=== PATIENT | male | born 1935 | race Caucasian/White ===

== ENCOUNTER 2016-07-10 06:16 | Observation (INO) ==
--- NOTE | 2016-07-10 06:31 | Emergency Department Note ---
START Narrative - START START: START NOTE: Patient presents with left lower quadrant abdominal pain. He is standing at the bedside and appears in no acute distress on exam. He denies needs at the time of my initial [id number] time. Further care to be continued by the oncoming physician Dr. Lemon
[2016-07-10 08:09] LABS: Basophils % 0.3 %; Eosinophils # 0.1 K/mcL (0.0-0.6); Eosinophils % 0.4 %; Hematocrit 39.3 % (37.5-50.1); Hemoglobin 13.3 g/dL (12.9-16.9); Immature Granulocytes % 0.7 % (0-4); Lymphocytes # 1.4 K/mcL (0.6-4.6); Lymphocytes % 8.6 %; Mean Corpuscular HGB Conc 33.8 g/dL (31.6-35.5); Mean Corpuscular Hemoglobin 28.5 pg (28.0-33.3); Mean Corpuscular Volume 84.2 fL (83.0-100.0); Mean Platelet Volume 10.2 fL (9.4-12.4); Monocytes # 2.3 K/mcL (0.0-1.3); Monocytes % 14.2 %; Platelet Count 171 K/mcL (140-400); Red Blood Count 4.67 M/mcL (4.19-5.50); Red Cell Distribution Width 13.2 % (11.5-14.5); Segmented Neutrophils % 75.8 %
[2016-07-10 08:25] LABS: Alanine Aminotransferase 14 Units/L (0-55); Albumin 3.2 g/dL (3.5-5.0); Alkaline Phosphatase 95 Units/L (38-126); Amylase 147 Units/L (25-125); Aspartate Amino Transferase 15 Units/L (5-34); BUN/Creatinine Ratio 21 (6-26); Bilirubin,Direct 0.7 mg/dL (0.0-0.5); Bilirubin,Indirect 1.1 mg/dL (0.0-1.2); Bilirubin,Total 1.8 mg/dL (0.2-1.2); Blood Urea Nitrogen 16 mg/dL (8-26); Calcium 8.7 mg/dL (8.6-10.8); Carbon Dioxide 25 mEq/L (19-29); Chloride 104 mEq/L (98-109); Globulin 3.1 g/dL (2.4-3.5); Glucose 155 mg/dL (70-99); Lipase 152 Units/L (8-78); Osmolality,Calculated 286 (280-300); Potassium 3.9 mEq/L (3.5-4.5); Sodium 136 mEq/L (136-145); Total Protein 6.3 g/dL (6.0-8.3); eGFR For African Americans > 60 (> 60); eGFR For Non-African Americans > 60 (> 60)
[2016-07-10] MEDS ORDERED: MetroNIDAZOLE 500 MG/100 ML 500 MG/100 ML BAG IVPB ONE (08:35)
--- NOTE | 2016-07-10 08:38 | Emergency Department Note ---
Disposition Clinical Impression: Diverticulitis Qualifiers: Diverticulitis site: large intestine Diverticulitis bleeding: without bleeding Diverticulitis complication: without perforation or abscess Qualified Code(s): K57.32 - Diverticulitis of large intestine without perforation or abscess without bleeding Disposition: Admitted As Inpatient Condition: Fair Referrals: Leonard Villarreal MD [Primary Care Provider] - Forms: Work/School Release, ED Satisfaction Letter Time of Disposition: 08:40 Abdominal Pain HPI - General Chief Complaint: ED Abdominal Pain Stated Complaint: lower left abdominal pain into left leg Time Seen by Provider: 07/10/16 06:28 Source: patient, other Mode of arrival: ambulatory Limitations: no limitations Nursing Notes Reviewed: Yes Vital Signs Reviewed: Yes - History of Present Illness HPI Narrative: 81-year-old who has a history of diverticular disease comes in complaining Pt Subjective Complaint: abdominal pain Onset (ago): hour(s) Consistency: constant Location: LLQ Pain Severity: moderate Pain Scale: 6 Quality: aching Radiation: none Migration to: no migration Improves with: nothing Worsens with: nothing Associated symptoms: Denies: nausea, vomiting, diarrhea - Related Data Allergies Allergy/AdvReac Type Severity Reaction Status Date / Time No Known Allergies Allergy Verified 07/10/16 06:17 Constitutional: Denies: fever, chills, weakness, weight change Eyes: Denies: eye pain, eye discharge, vision change ENT ED: Denies: ear pain, throat pain, dental pain, hearing loss, epistaxis, congestion, dysphagia Cardiovascular: Denies: chest pain, palpitations, dyspnea on exertion, edema, syncope Respiratory: Denies: cough, dyspnea, wheezes, hemoptysis, stridor Gastrointestinal: Denies: abdominal pain, nausea, vomiting, diarrhea, constipation, hematemesis, melena, hematochezia Genitourinary: Denies: urgency, dysuria, frequency, hematuria Musculoskeletal: Denies: back pain, neck pain, arthralgia, myalgia Integumentary: Denies: rash, abrasion, lesions Neurological: Denies: headache, weakness, numbness, paresthesias, confusion, abnormal gait, vertigo Psychiatric: Denies: anxiety, depression, suicidal thoughts, homicidal thoughts , auditory hallucinations, visual hallucinations Endocrine: Denies: fatigue Hematological/Lymphatic: Denies: easy bleeding, easy bruising Allergic/Immunologic: Denies: facial swelling, urticaria Abdominal Pain PMH - Past Medical History Medical history: Reports: arthritis, cancer, coronary artery disease, CVA, diabetes, GERD, hyperlipidemia, hypertension, myocardial infarction Male Surgical History: Reports: other Psychiatric history: Reports: no psych history - Social History Smoking status: Never smoker Alcohol use: Reports: none Drug use: Reports: none Physical Exam - General Limitations: no limitations General appearance: alert - Head Head exam: atraumatic, normocephalic, normal inspection - Eye Eye exam: Present: normal appearance, PERRL, EOMI - ENT ENT exam: normal exam, normal oropharynx, mucous membranes moist - Neck Neck exam: Present: normal inspection, full ROM, trachea midline - Chest Chest inspection: Present: normal inspection, symmetric chest wall rise - Respiratory Respiratory exam: Present: normal lung sounds bilaterally - Cardiovascular Cardiovascular exam: Present: regular rate, normal rhythm, normal heart sounds - Abdominal Exam Abdominal exam: Present: soft, tenderness. Absent: guarding, rebound Abdominal tenderness: Present: LUQ - Extremities Exam Extremities exam: Present: normal inspection, full ROM. Absent: tenderness, pedal edema - Expanded Lower Extremity Exam Gait: not tested/not observed - Back Exam Back exam: Present: normal inspection, full ROM. Absent: tenderness - Neurological Exam Neurological exam: Present: alert, oriented X3 - Skin Skin exam: Present: warm, dry, intact, normal color Course - Consultations Consultation #1: Discussed with , admit. Time: 08:47 Vital Signs Temperature 98.1 F 07/10/16 06:17 Pulse Rate 102 07/10/16 06:17 Respiratory Rate 20 07/10/16 06:17 Blood Pressure 130/71 07/10/16 06:17 O2 Sat by Pulse Oximetry 96 07/10/16 06:17 Temperature 98.1 F 07/10/16 06:17 Pulse Rate 102 07/10/16 06:17 Respiratory Rate 20 07/10/16 06:17 Blood Pressure 130/71 07/10/16 06:17 O2 Sat by Pulse Oximetry 96 07/10/16 06:17 Oxygen Delivery Oxygen Delivery Room Air Abdominal Pain - Lab Data Result diagrams: 07/10/16 08:01 07/10/16 08:01 Lab Results 07/10/16 07/10/16 Range/Units 08:01 08:01 WBC 15.8 H (4.3-11.1) K/mcL RBC 4.67 (4.19-5.50) M/mcL Hgb 13.3 (12.9-16.9) g/dL Hct 39.3 (37.5-50.1) % MCV 84.2 (83.0-100.0) fL MCH 28.5 (28.0-33.3) pg MCHC 33.8 (31.6-35.5) g/dL RDW 13.2 (11.5-14.5) % Plt Count 171 (140-400) K/mcL MPV 10.2 (9.4-12.4) fL Immature Gran % 0.7 (0-4) % Seg Neutrophils % 75.8 % Lymphocytes % 8.6 % Monocytes % 14.2 % Eosinophils % 0.4 % Basophils % 0.3 % Neutrophils # 12.0 H (1.6-8.9) K/mcL Lymphocytes # 1.4 (0.6-4.6) K/mcL Monocytes # 2.3 H (0.0-1.3) K/mcL Eosinophils # 0.1 (0.0-0.6) K/mcL Basophils # 0.0 (0.0-0.2) K/mcL Sodium 136 (136-145) mEq/L Potassium 3.9 (3.5-4.5) mEq/L Chloride 104 (98-109) mEq/L Carbon Dioxide 25 (19-29) mEq/L BUN 16 (8-26) mg/dL Creatinine 0.76 (0.72-1.25) mg/dL Est GFR ( Amer) > 60 (> 60) Est GFR (Non-Af Amer) > 60 (> 60) BUN/Creatinine Ratio 21 (6-26) Glucose 155 H (70-99) mg/dL Calculated Osmolality 286 (280-300) Calcium 8.7 (8.6-10.8) mg/dL Total Bilirubin 1.8 H (0.2-1.2) mg/dL Direct Bilirubin 0.7 H (0.0-0.5) mg/dL Indirect Bilirubin 1.1 (0.0-1.2) mg/dL AST 15 (5-34) Units/L ALT 14 (0-55) Units/L Alkaline Phosphatase 95 (38-126) Units/L Serum Total Protein 6.3 (6.0-8.3) g/dL Albumin 3.2 L (3.5-5.0) g/dL Globulin 3.1 (2.4-3.5) g/dL Albumin/Globulin Ratio 1.0 L (1.1-2.2) Amylase 147 H (25-125) Units/L Lipase 152 H (8-78) Units/L
--- NOTE | 2016-07-10 09:45 | Internal Med History&Physical ---
Date of Encounter: 07/10/16 Time of Encounter: 09:40 Assessment and Plan (1) Diverticulitis Current visit: Yes Status: Acute Patient presented with clinical findings along with tomographic findings consistent with diverticulitis. This is not the first time in which he has this diagnosis. Additionally, the patient has been febrile and has some leukocytosis in the initial WBC count. We will continue with IV fluids, will keep the patient nothing by mouth in the meantime, continue with IV antibiotics and pain control medications. DVT prophylaxis will be provided according to the hospital's protocol. The plan of care was explained in detail to the patient and his , they both expressed understanding. Qualifiers: Diverticulitis site: large intestine Diverticulitis bleeding: without bleeding Diverticulitis complication: without perforation or abscess Qualified Code(s): K57.32 - Diverticulitis of large intestine without perforation or abscess without bleeding Internal Medicine - H&P: HPI Chief complaint: abd pain Admitted From: Emergency Dept Plans for Post Hospital Care: Home History of present illness: Mr. Baker is a 81 year old male with past medical history of hypertension, coronary artery disease, CVA. According to the patient's he had an event of diverticulitis many years ago. The patient presented to our emergency department complaining of left lower quadrant pain which started last evening. Patient states that the pain is pressure-like, associated with fever of 101.4 Fahrenheit, nausea, he vomited once. No blood when he threw up. He denies diarrhea, constipation, blood in the stools, syncope, chest pain, palpitations. Initial workup revealed findings consistent with diverticulitis in the CT scan of the abdomen and pelvis. The patient was admitted for further management and workup. Past Med Surg Social Fam HX - Past Medical History Medical history: arthritis, cancer, coronary artery disease, CVA, diabetes, GERD , hyperlipidemia, hypertension, myocardial infarction Psychiatric history: no psych history - Past Surgical History Surgical History: carotid endarterectomy, orthopedic, other - Social History Smoking Status: Never smoker Smokeless Tobacco Status: No Alcohol use: none Drug use: none Internal Medicine - H&P: Meds Aspirin 325 mg PO DAILY 07/10/16 [History] Atorvastatin [Lipitor] 40 mg PO HS 07/10/16 [History] Bisoprolol/HCTZ 2.5/6.25 [Ziac 2.5/6.25] 1 each PO DAILY 07/10/16 [History] Carvedilol [Carvedilol] 3.125 mg PO BID 07/10/16 [History] Cholecalciferol (Vitamin D3) [Vitamin D] 1,000 unit PO DAILY 07/10/16 [History] Clopidogrel [Plavix] 75 mg PO DAILY 07/10/16 [History] Diclofenac Sodium [Voltaren] 1 appl TP QID PRN 07/10/16 [History] Famotidine [Famotidine] 40 mg PO DAILY 07/10/16 [History] Finasteride [Proscar] 5 mg PO DAILY 07/10/16 [History] Isosorbide MONOnitrate (24 HR) [Imdur] 30 mg PO DAILY 07/10/16 [History] Lansoprazole [Prevacid] 30 mg PO DAILY 07/10/16 [History] Losartan Potassium [Cozaar] 50 mg PO DAILY 07/10/16 [History] Metformin [Glucophage] 500 mg PO BIDWM 07/10/16 [History] Multivitamin [Multi-Day Vitamins] 1 each PO DAILY 07/10/16 [History] Nitroglycerin [Nitrostat] 0.4 mg SL Q5M PRN 07/10/16 [History] Allergies No Known Allergies Allergy (Verified 07/10/16 06:17) All Systems PM: A 10-system review of systems was performed and is negative for pertinent findings except as documented above in the HPI. - Constitutional Constitutional: as per HPI, fever(s), no chills, no night sweats - EENT Eyes: as per HPI, no change in vision, no discharge, no pain, no photophobia Ears: as per HPI, no ear discharge, no ear pain, no tinnitus Nose, mouth and throat: as per HPI, no dysphagia, no nasal discharge, no neck pain, no sore throat - Breasts Breasts: as per HPI - Cardiovascular Cardiovascular ROS IM: as per HPI, no chest pain, no diaphoresis, no dyspnea, no lightheadedness, no palpitations, no syncope - Respiratory Respiratory: as per HPI, no cough, no dyspnea, no wheezing, no excessive phlegm production - Gastrointestinal Gastrointestinal: as per HPI, abdominal pain, nausea, vomiting, no diarrhea, no hematemesis, no hematochezia, no melena - Genitourinary Genitourinary ROS male: as per HPI - Musculoskeletal Musculoskeletal ROS IM: as per HPI, no numbness, no tingling - Integumentary Integumentary IM: as per HPI, no rash, no unusual bruising - Neurological Neurological ROS: as per HPI, no confusion, no convulsions, no focal weakness, no numbness, no tingling, no tremor(s) - Psychiatric Psychiatric: as per HPI - Endocrine Endocrine IM: as per HPI - Hematologic/Lymphatic Hematologic/Lymphatic: as per HPI, no easy bruising - Allergic/Immunologic Allergic/Immunologic: as per HPI - Constitutional Vitals: Temp Pulse Resp BP Pulse Ox 98.1 F 75 16 128/78 95 07/10/16 06:17 07/10/16 09:00 07/10/16 09:00 07/10/16 09:00 07/10/16 09:00 General appearance: Present: cooperative, A&O X 3 - Head Head exam: Present: atraumatic, normocephalic - Eye Eye exam: Present: PERRL, conjuntiva pink, sclera anicteric Pupils: Present: PERRL - Neck Neck exam general surgery: Present: supple, trachea midline. Absent: lymphadenopathy - Respiratory Respiratory exam: Present: CTAB. Absent: accessory muscle use, rales, rhonchi, wheezes - Cardiovascular Cardiovascular exam: Present: RRR, +S1, +S2. Absent: diastolic murmur, gallop, rubs, systolic murmur - GI/Abdominal GI/Abdominal exam: Present: normal bowel sounds, soft, tenderness (LLQ), no peritoneal signs. Absent: distended - Extremities Exam Extremities exam: Present: warm, radial pulses palpable and symetrical. Absent : calf tenderness, cyanotic, pedal edema - Neurological Exam Neurological exam: Present: CN II-XII intact, oriented X3, no focal deficits. Absent: pronater drift, facial droop, speech deficit - Skin Skin exam: Present: dry, intact Internal Med - H&P Results - Labs CBC & Chem 7: 07/10/16 08:01 07/10/16 08:01
[2016-07-10] MEDS ORDERED: *HR* Morphine 2 MG/ML SYRINGE IVP PRN (09:51)
[2016-07-10] MEDS ORDERED: Naloxone 0.4 MG/ML INJ IVP PRN (09:51)
[2016-07-10] MEDS ORDERED: Acetaminophen 325 MG TABLET PO PRN (09:51)
[2016-07-10] MEDS ORDERED: Ondansetron 4 MG/2 ML VIAL IVP PRN (09:51)
[2016-07-10] MEDS ORDERED: D5% in Water 1,000 ML IV PRN (09:55)
[2016-07-10] MEDS ORDERED: Dextrose Gel 15 GM PO PRN ×2 (09:55)
[2016-07-10] MEDS ORDERED: *HR* Dextrose 50 % in Water (Syg) 50 ML SYRINGE IVP PRN (09:55)
[2016-07-10] MEDS: D5% in 0.45% NACL 1,000 ML IVC SCH (11:34)
[2016-07-10] MEDS: Insulin LISPRO 300 UNITS/3 ML VIAL SQ SCH ×2 (12:00→18:30)
[2016-07-10] MEDS: *HR* OxyCODONE Immed Rel 5 MG TABLET PO PRN (17:09)
[2016-07-10] MEDS: MetroNIDAZOLE 500 MG/100 ML 500 MG/100 ML BAG IVPB SCH (17:09)
[2016-07-10] MEDS: *HR* Heparin 5,000 UNIT/ML VIAL SQ SCH (17:10)
[2016-07-10] MEDS: Famotidine 20 MG/2 ML VIAL IVP SCH (17:11)
[2016-07-10 17:42] LABS: Bilirubin,Urine Negative (Negative); Blood,Urine Trace (Negative); Clarity,Urine Clear (Clear); Color,Urine Yellow (Yellow); Glucose,Urine (UA) 100 mg/dL (Normal); Ketones,Urine Negative (Negative); Leukocyte Esterase,Urine Negative (Negative); Nitrite,Urine Negative (Negative); Protein,Urine Negative (Neg-Trace); Specific Gravity,Urine 1.013 (1.010-1.025); Urobilinogen,Urine Normal (Normal)
[2016-07-10 18:04] LABS: Squamous Epithelial Cell,Urine Few per lpf (None-Few); WBC,Urine 0-3 per hpf (0-3)
[2016-07-11] MEDS: Insulin LISPRO 300 UNITS/3 ML VIAL SQ SCH ×4 (00:15→18:04)
[2016-07-11] MEDS: *HR* Heparin 5,000 UNIT/ML VIAL SQ SCH ×4 (00:15→23:33)
[2016-07-11] MEDS: *HR* OxyCODONE Immed Rel 5 MG TABLET PO PRN ×4 (00:16→18:11)
[2016-07-11] MEDS: MetroNIDAZOLE 500 MG/100 ML 500 MG/100 ML BAG IVPB SCH ×4 (00:17→23:33)
[2016-07-11] MEDS: D5% in 0.45% NACL 1,000 ML IVC SCH ×2 (00:18→11:54)
[2016-07-11] MEDS: Famotidine 20 MG/2 ML VIAL IVP SCH (05:53)
[2016-07-11 06:23] LABS: Basophils % 0.3 %; Eosinophils # 0.1 K/mcL (0.0-0.6); Eosinophils % 1.5 %; Hematocrit 40.2 % (37.5-50.1); Hemoglobin 13.2 g/dL (12.9-16.9); Immature Granulocytes % 0.7 % (0-4); Lymphocytes # 1.3 K/mcL (0.6-4.6); Mean Corpuscular HGB Conc 32.8 g/dL (31.6-35.5); Mean Corpuscular Hemoglobin 27.8 pg (28.0-33.3); Mean Corpuscular Volume 84.6 fL (83.0-100.0); Mean Platelet Volume 11.2 fL (9.4-12.4); Monocytes # 1.3 K/mcL (0.0-1.3); Monocytes % 13.1 %; Neutrophils # 6.7 K/mcL (1.6-8.9); Platelet Count 162 K/mcL (140-400); Red Blood Count 4.75 M/mcL (4.19-5.50); Red Cell Distribution Width 13.2 % (11.5-14.5); Segmented Neutrophils % 70.4 %
[2016-07-11 06:30] LABS: Alanine Aminotransferase 11 Units/L (0-55); Albumin 2.9 g/dL (3.5-5.0); Albumin/Globulin Ratio 0.9 (1.1-2.2); Alkaline Phosphatase 77 Units/L (38-126); Aspartate Amino Transferase 14 Units/L (5-34); BUN/Creatinine Ratio 13 (6-26); Bilirubin,Total 1.7 mg/dL (0.2-1.2); Blood Urea Nitrogen 10 mg/dL (8-26); Calcium 8.5 mg/dL (8.6-10.8); Carbon Dioxide 22 mEq/L (19-29); Chloride 105 mEq/L (98-109); Globulin 3.2 g/dL (2.4-3.5); Glucose 162 mg/dL (70-99); Magnesium 1.8 mg/dL (1.6-2.6); Osmolality,Calculated 283 (280-300); Potassium 3.9 mEq/L (3.5-4.5); Sodium 135 mEq/L (136-145); Total Protein 6.1 g/dL (6.0-8.3); eGFR For African Americans > 60 (> 60); eGFR For Non-African Americans > 60 (> 60)
--- NOTE | 2016-07-11 13:03 | Internal Med Progress Note ---
Date of Encounter: 07/11/16 Time of Encounter: 09:00 - Assessment and plan (1) Diverticulitis Current Visit: Yes Status: Acute Assessment and plan: We will continue Cipro and Flagyl, keep nothing by mouth, IV fluid. White count get Down after treatment. Qualifiers: Diverticulitis site: large intestine Diverticulitis bleeding: without bleeding Diverticulitis complication: without perforation or abscess Qualified Code(s): K57.32 - Diverticulitis of large intestine without perforation or abscess without bleeding (2) Hypertension Current Visit: Yes Status: Acute Assessment and plan: BP is stable, will continue home medication Qualifiers: Hypertension type: essential hypertension Qualified Code(s): I10 - Essential (primary) hypertension (3) Diabetes Current Visit: Yes Status: Acute Assessment and plan: Patient will covered by sliding scale. Qualifiers: Diabetes mellitus type: type 2 Diabetes mellitus complication status: without complication Diabetes mellitus penitentiary insulin use: without penitentiary use Qualified Code(s): E11.9 - Type 2 diabetes mellitus without complications (4) CAD (coronary artery disease) Current Visit: Yes Status: Acute Assessment and plan: Stable, will continue home medication Qualifiers: Coronary Disease-Associated Artery/Lesion type: [place] artery [place] vs. transplanted heart: [place] heart Associated angina: without angina Qualified Code(s): I25.10 - Atherosclerotic heart disease of [place] coronary artery without angina pectoris (5) DVT prophylaxis Current Visit: Yes Status: Acute Assessment and plan: Heparin subcutaneously - Time Spent With Patient 25 - 35 minutes - Subjective Interval history: Patient is a 81-year-old male admitted for acute diverticulitis. His past medical history is significant for CAD, CVA, diabetes, hyperlipidemia, hypertension. Patient was seen and examined today. He said that his nausea and vomiting has improved. Mild abdominal pain. No diarrhea. No fever, vital signs stable. We will continue Cipro and Flagyl, keep nothing by mouth, give IV fluid. - Constitutional Vitals: Temp Pulse Resp BP Pulse Ox 98.4 F 64 16 154/59 93 L 07/11/16 11:33 07/11/16 11:33 07/11/16 11:33 07/11/16 11:33 07/11/16 11:33 General appearance: Present: cooperative, A&O X 3 - Head Head exam: Present: atraumatic, normocephalic - Eye Eye exam: Present: PERRL, conjuntiva pink, sclera anicteric Pupils: Present: PERRL - Neck Neck exam general surgery: Present: supple, trachea midline. Absent: lymphadenopathy - Respiratory Respiratory exam: Present: CTAB. Absent: accessory muscle use, rales, rhonchi, wheezes - Cardiovascular Cardiovascular exam: Present: RRR, +S1, +S2. Absent: diastolic murmur, gallop, rubs, systolic murmur - GI/Abdominal GI/Abdominal exam: Present: normal bowel sounds, soft, tenderness (Mild to tenderness on the lower part of abdomen upon deep palpation.), no peritoneal signs. Absent: distended - Extremities Exam Extremities exam: Present: warm, radial pulses palpable and symetrical. Absent : calf tenderness, cyanotic, pedal edema - Neurological Exam Neurological exam: Present: CN II-XII intact, oriented X3, no focal deficits. Absent: pronater drift, facial droop, speech deficit - Skin Skin exam: Present: dry, intact Internal Medicine: Result - Labs CBC & Chem 7: 07/11/16 04:27 07/11/16 04:27 Labs: Short CBC 07/11/16 Range/Units 04:27 WBC 9.6 (4.3-11.1) K/mcL Hgb 13.2 (12.9-16.9) g/dL Hct 40.2 (37.5-50.1) % Plt Count 162 (140-400) K/mcL Neutrophils # 6.7 (1.6-8.9) K/mcL BMP 07/11/16 04:27 Sodium 135 L Potassium 3.9 Chloride 105 Carbon Dioxide 22 BUN 10 Creatinine 0.76 Glucose 162 H Calcium 8.5 L Liver Function 07/11/16 Range/Units 04:27 Total Bilirubin 1.7 H (0.2-1.2) mg/dL AST 14 (5-34) Units/L ALT 11 (0-55) Units/L Alkaline Phosphatase 77 (38-126) Units/L Albumin 2.9 L (3.5-5.0) g/dL Urine 07/10/16 Range/Units 17:17 Urine Color Yellow (Yellow) Urine Clarity Clear (Clear) Urine pH 7.0 (5.0-8.0) pH Units Ur Specific [place] 1.013 (1.010-1.025) Urine Protein Negative (Neg-Trace) mg/dL Urine Glucose (UA) 100 H (Normal) mg/dL - VTE Documentation of Mechanical Device: Intermittent pneumatic compression device Consult Discharge Plan - Plan Referrals: Leonard Villarreal MD [Primary Care Provider] -
[2016-07-11] MEDS ORDERED: (Diclofenac Sodium [Voltaren] 1 APPL) TP PRN (13:05)
[2016-07-11] MEDS ORDERED: Nitroglycerin 0.4 MG TAB.SUBL SL PRN (13:05)
[2016-07-12] MEDS: Insulin LISPRO 300 UNITS/3 ML VIAL SQ SCH ×4 (01:08→17:48)
[2016-07-12 04:49] LABS: Hematocrit 40.3 % (37.5-50.1); Hemoglobin 13.5 g/dL (12.9-16.9); Immature Granulocytes % 0.6 % (0-4); Lymphocytes % 13.7 %; Mean Corpuscular HGB Conc 33.5 g/dL (31.6-35.5); Mean Corpuscular Hemoglobin 28.2 pg (28.0-33.3); Mean Corpuscular Volume 84.1 fL (83.0-100.0); Mean Platelet Volume 10.8 fL (9.4-12.4); Platelet Count 172 K/mcL (140-400); Red Blood Count 4.79 M/mcL (4.19-5.50); Red Cell Distribution Width 13.1 % (11.5-14.5); Segmented Neutrophils % 69.2 %
[2016-07-12 04:50] LABS: Basophils % 0.4 %; Eosinophils # 0.2 K/mcL (0.0-0.6); Eosinophils % 2.5 %; Lymphocytes # 1.1 K/mcL (0.6-4.6); Monocytes # 1.1 K/mcL (0.0-1.3); Monocytes % 13.6 %; Neutrophils # 5.7 K/mcL (1.6-8.9)
[2016-07-12 04:56] LABS: BUN/Creatinine Ratio 12 (6-26); Blood Urea Nitrogen 9 mg/dL (8-26); Calcium 8.9 mg/dL (8.6-10.8); Carbon Dioxide 25 mEq/L (19-29); Chloride 104 mEq/L (98-109); Glucose 133 mg/dL (70-99); Osmolality,Calculated 285 (280-300); Potassium 3.8 mEq/L (3.5-4.5); Sodium 137 mEq/L (136-145); eGFR For African Americans > 60 (> 60); eGFR For Non-African Americans > 60 (> 60)
[2016-07-12] MEDS: *HR* Heparin 5,000 UNIT/ML VIAL SQ SCH ×2 (07:01→16:20)
[2016-07-12] MEDS: MetroNIDAZOLE 500 MG/100 ML 500 MG/100 ML BAG IVPB SCH ×2 (07:01→16:20)
[2016-07-12] MEDS: Finasteride 5 MG TABLET PO SCH (08:12)
[2016-07-12] MEDS: Isosorbide MONOnitrate (24 HR) 30 MG TAB.ER.24H PO SCH (08:12)
[2016-07-12] MEDS: Multivit/Ca/Min/Fe/FA 1 TAB TABLET PO SCH (08:12)
[2016-07-12] MEDS: Cholecalciferol (D-3) 1,000 UNIT TABLET PO SCH (08:12)
[2016-07-12] MEDS: Aspirin 325 MG TABLET PO SCH (08:12)
[2016-07-12] MEDS: Famotidine 20 MG TABLET PO SCH (08:12)
[2016-07-12] MEDS ORDERED: Bisoprolol/HCTZ 2.5/6.25 TABLET PO SCH (09:00)
--- NOTE | 2016-07-12 14:25 | Internal Med Progress Note ---
Date of Encounter: 07/12/16 Time of Encounter: 08:45 - Assessment and plan (1) Diverticulitis Current Visit: Yes Status: Acute Assessment and plan: Acute. Without perforation or abscess. Improving clinically. Started on clears. If he Tolerates clears, advance diet slowly. Qualifiers: Diverticulitis site: large intestine Diverticulitis bleeding: without bleeding Diverticulitis complication: without perforation or abscess Qualified Code(s): K57.32 - Diverticulitis of large intestine without perforation or abscess without bleeding (2) CAD (coronary artery disease) Current Visit: Yes Status: Acute Assessment and plan: Chronic. No acute chest pain. Continue aspirin, statin, beta alma Qualifiers: Coronary Disease-Associated Artery/Lesion type: [place] artery [place] vs. transplanted heart: [place] heart Associated angina: without angina Qualified Code(s): I25.10 - Atherosclerotic heart disease of [place] coronary artery without angina pectoris (3) DVT prophylaxis Current Visit: Yes Status: Acute Assessment and plan: On subcutaneous heparin (4) Diabetes Current Visit: Yes Status: Acute Assessment and plan: Monitor blood sugars. We will increase insulin regimen as patient's diet is advanced. Qualifiers: Diabetes mellitus type: type 2 Diabetes mellitus complication status: without complication Diabetes mellitus snf insulin use: without rodent exterminator use Qualified Code(s): E11.9 - Type 2 diabetes mellitus without complications (5) Hypertension Current Visit: Yes Status: Acute Assessment and plan: Well-controlled Qualifiers: Hypertension type: essential hypertension Qualified Code(s): I10 - Essential (primary) hypertension - Subjective Interval history: Abdominal pain is improving. No fever or chills reported overnight. Started on clears this morning. Tolerating well. He did have an episode of emesis this morning. Received Zofran. - Constitutional Vitals: Temp Pulse Resp BP Pulse Ox 97.5 F L 80 16 131/68 95 07/12/16 10:10 07/12/16 10:10 07/12/16 10:10 07/12/16 10:10 07/12/16 10:10 General appearance: Present: cooperative, mild distress, A&O X 3, pleasant, answers questions appropriately - Neck Neck exam general surgery: Present: supple, trachea midline. Absent: lymphadenopathy - Respiratory Respiratory exam: Present: CTAB. Absent: accessory muscle use, rales, rhonchi, wheezes - Cardiovascular Cardiovascular exam: Present: RRR, +S1, +S2. Absent: diastolic murmur, gallop, rubs, systolic murmur - GI/Abdominal GI/Abdominal exam: Present: normal bowel sounds, soft, tenderness (Umbilical and left lower quadrant regions), no peritoneal signs. Absent: distended - Extremities Exam Extremities exam: Present: warm, radial pulses palpable and symetrical. Absent : calf tenderness, cyanotic, pedal edema - Neurological Exam Neurological exam: Present: CN II-XII intact, oriented X3, no focal deficits, strengths equal and symetr throughout. Absent: facial droop, speech deficit Internal Medicine: Result - Labs CBC & Chem 7: 07/12/16 04:33 07/12/16 04:33 Labs: Short CBC 07/12/16 Range/Units 04:33 WBC 8.2 (4.3-11.1) K/mcL Hgb 13.5 (12.9-16.9) g/dL Hct 40.3 (37.5-50.1) % Plt Count 172 (140-400) K/mcL Neutrophils # 5.7 (1.6-8.9) K/mcL BMP 07/12/16 04:33 Sodium 137 Potassium 3.8 Chloride 104 Carbon Dioxide 25 BUN 9 Creatinine 0.75 Glucose 133 H Calcium 8.9 - VTE Documentation of Mechanical Device: Intermittent pneumatic compression device Consult Discharge Plan - Plan Referrals: Leonard Villarreal MD [Primary Care Provider] - - Attending Attestation This document has been at least partially created by [employer] voice recognition technology by Dr. Simons. Errors in grammar, wording or other phrases may exist. If errors are found after the documentation is signed, they will be addressed individually in the addendum section of this document when appropriate. Medical Decision Making - MDM Narrative Medical decision making narrative: Moderate risk for complications - Medical Records Medical records reviewed: Yes I reviewed the patient's medical records. - Lab Data Lab results reviewed: Yes I reviewed the patient's lab results. Result diagrams: 07/12/16 04:33 07/12/16 04:33 Lab Results 07/10/16 07/10/16 07/11/16 Range/Units 17:17 17:25 00:12 WBC (4.3-11.1) K/mcL RBC (4.19-5.50) M/mcL Hgb (12.9-16.9) g/dL Hct (37.5-50.1) % MCV (83.0-100.0) fL MCH (28.0-33.3) pg MCHC (31.6-35.5) g/dL RDW (11.5-14.5) % Plt Count (140-400) K/mcL MPV (9.4-12.4) fL Immature Gran % (0-4) % Seg Neutrophils % % Lymphocytes % % Monocytes % % Eosinophils % % Basophils % % Neutrophils # (1.6-8.9) K/mcL Lymphocytes # (0.6-4.6) K/mcL Monocytes # (0.0-1.3) K/mcL Eosinophils # (0.0-0.6) K/mcL Basophils # (0.0-0.2) K/mcL Sodium (136-145) mEq/L Potassium (3.5-4.5) mEq/L Chloride (98-109) mEq/L Carbon Dioxide (19-29) mEq/L BUN (8-26) mg/dL Creatinine (0.72-1.25) mg/dL Est GFR ( Amer) (> 60) Est GFR (Non-Af Amer) (> 60) BUN/Creatinine Ratio (6-26) Glucose (70-99) mg/dL POC Glucose 123 H 159 H (58-89) Calculated Osmolality (280-300) Calcium (8.6-10.8) mg/dL Magnesium (1.6-2.6) mg/dL Total Bilirubin (0.2-1.2) mg/dL AST (5-34) Units/L ALT (0-55) Units/L Alkaline Phosphatase (38-126) Units/L Serum Total Protein (6.0-8.3) g/dL Albumin (3.5-5.0) g/dL Globulin (2.4-3.5) g/dL Albumin/Globulin Ratio (1.1-2.2) Urine Color Yellow (Yellow) Urine Clarity Clear (Clear) Urine pH 7.0 (5.0-8.0) pH Units Ur Specific [place] 1.013 (1.010-1.025) Urine Protein Negative (Neg-Trace) mg/dL Urine Glucose (UA) 100 H (Normal) mg/dL Urine Ketones Negative (Negative) mg/dL Urine Blood Trace H (Negative) Urine Nitrite Negative (Negative) Urine Bilirubin Negative (Negative) Urine Urobilinogen Normal (Normal) mg/dL Ur Leukocyte Esterase Negative (Negative) Urine Microscopic WBC 0-3 (0-3) per hpf Ur Squamous Epith Cells Few (None-Few) per lpf Ur Culture Indicated? NO (NO) 07/11/16 07/11/16 07/11/16 Range/Units 04:27 04:27 05:09 WBC 9.6 (4.3-11.1) K/mcL RBC 4.75 (4.19-5.50) M/mcL Hgb 13.2 (12.9-16.9) g/dL Hct 40.2 (37.5-50.1) % MCV 84.6 (83.0-100.0) fL MCH 27.8 L (28.0-33.3) pg MCHC 32.8 (31.6-35.5) g/dL RDW 13.2 (11.5-14.5) % Plt Count 162 (140-400) K/mcL MPV 11.2 (9.4-12.4) fL Immature Gran % 0.7 (0-4) % Seg Neutrophils % 70.4 % Lymphocytes % 14.0 % Monocytes % 13.1 % Eosinophils % 1.5 % Basophils % 0.3 % Neutrophils # 6.7 (1.6-8.9) K/mcL Lymphocytes # 1.3 (0.6-4.6) K/mcL Monocytes # 1.3 (0.0-1.3) K/mcL Eosinophils # 0.1 (0.0-0.6) K/mcL Basophils # 0.0 (0.0-0.2) K/mcL Sodium 135 L (136-145) mEq/L Potassium 3.9 (3.5-4.5) mEq/L Chloride 105 (98-109) mEq/L Carbon Dioxide 22 (19-29) mEq/L BUN 10 (8-26) mg/dL Creatinine 0.76 (0.72-1.25) mg/dL Est GFR ( Amer) > 60 (> 60) Est GFR (Non-Af Amer) > 60 (> 60) BUN/Creatinine Ratio 13 (6-26) Glucose 162 H (70-99) mg/dL POC Glucose 148 H (58-89) Calculated Osmolality 283 (280-300) Calcium 8.5 L (8.6-10.8) mg/dL Magnesium 1.8 (1.6-2.6) mg/dL Total Bilirubin 1.7 H (0.2-1.2) mg/dL AST 14 (5-34) Units/L ALT 11 (0-55) Units/L Alkaline Phosphatase 77 (38-126) Units/L Serum Total Protein 6.1 (6.0-8.3) g/dL Albumin 2.9 L (3.5-5.0) g/dL Globulin 3.2 (2.4-3.5) g/dL Albumin/Globulin Ratio 0.9 L (1.1-2.2) Urine Color (Yellow) Urine Clarity (Clear) Urine pH (5.0-8.0) pH Units Ur Specific [place] (1.010-1.025) Urine Protein (Neg-Trace) mg/dL Urine Glucose (UA) (Normal) mg/dL Urine Ketones (Negative) mg/dL Urine Blood (Negative) Urine Nitrite (Negative) Urine Bilirubin (Negative) Urine Urobilinogen (Normal) mg/dL Ur Leukocyte Esterase (Negative) Urine Microscopic WBC (0-3) per hpf Ur Squamous Epith Cells (None-Few) per lpf Ur Culture Indicated? (NO) 07/11/16 07/11/16 07/12/16 Range/Units 11:30 16:41 00:31 WBC (4.3-11.1) K/mcL RBC (4.19-5.50) M/mcL Hgb (12.9-16.9) g/dL Hct (37.5-50.1) % MCV (83.0-100.0) fL MCH (28.0-33.3) pg MCHC (31.6-35.5) g/dL RDW (11.5-14.5) % Plt Count (140-400) K/mcL MPV (9.4-12.4) fL Immature Gran % (0-4) % Seg Neutrophils % % Lymphocytes % % Monocytes % % Eosinophils % % Basophils % % Neutrophils # (1.6-8.9) K/mcL Lymphocytes # (0.6-4.6) K/mcL Monocytes # (0.0-1.3) K/mcL Eosinophils # (0.0-0.6) K/mcL Basophils # (0.0-0.2) K/mcL Sodium (136-145) mEq/L Potassium (3.5-4.5) mEq/L Chloride (98-109) mEq/L Carbon Dioxide (19-29) mEq/L BUN (8-26) mg/dL Creatinine (0.72-1.25) mg/dL Est GFR ( Amer) (> 60) Est GFR (Non-Af Amer) (> 60) BUN/Creatinine Ratio (6-26) Glucose (70-99) mg/dL POC Glucose 140 H 140 H 134 H (58-89) Calculated Osmolality (280-300) Calcium (8.6-10.8) mg/dL Magnesium (1.6-2.6) mg/dL Total Bilirubin (0.2-1.2) mg/dL AST (5-34) Units/L ALT (0-55) Units/L Alkaline Phosphatase (38-126) Units/L Serum Total Protein (6.0-8.3) g/dL Albumin (3.5-5.0) g/dL Globulin (2.4-3.5) g/dL Albumin/Globulin Ratio (1.1-2.2) Urine Color (Yellow) Urine Clarity (Clear) Urine pH (5.0-8.0) pH Units Ur Specific [place] (1.010-1.025) Urine Protein (Neg-Trace) mg/dL Urine Glucose (UA) (Normal) mg/dL Urine Ketones (Negative) mg/dL Urine Blood (Negative) Urine Nitrite (Negative) Urine Bilirubin (Negative) Urine Urobilinogen (Normal) mg/dL Ur Leukocyte Esterase (Negative) Urine Microscopic WBC (0-3) per hpf Ur Squamous Epith Cells (None-Few) per lpf Ur Culture Indicated? (NO) 07/12/16 07/12/16 07/12/16 Range/Units 04:33 04:33 04:33 WBC 8.2 (4.3-11.1) K/mcL RBC 4.79 (4.19-5.50) M/mcL Hgb 13.5 (12.9-16.9) g/dL Hct 40.3 (37.5-50.1) % MCV 84.1 (83.0-100.0) fL MCH 28.2 (28.0-33.3) pg MCHC 33.5 (31.6-35.5) g/dL RDW 13.1 (11.5-14.5) % Plt Count 172 (140-400) K/mcL MPV 10.8 (9.4-12.4) fL Immature Gran % 0.6 (0-4) % Seg Neutrophils % 69.2 % Lymphocytes % 13.7 % Monocytes % 13.6 % Eosinophils % 2.5 % Basophils % 0.4 % Neutrophils # 5.7 (1.6-8.9) K/mcL Lymphocytes # 1.1 (0.6-4.6) K/mcL Monocytes # 1.1 (0.0-1.3) K/mcL Eosinophils # 0.2 (0.0-0.6) K/mcL Basophils # 0.0 (0.0-0.2) K/mcL Sodium 137 (136-145) mEq/L Potassium 3.8 (3.5-4.5) mEq/L Chloride 104 (98-109) mEq/L Carbon Dioxide 25 (19-29) mEq/L BUN 9 (8-26) mg/dL Creatinine 0.75 (0.72-1.25) mg/dL Est GFR ( Amer) > 60 (> 60) Est GFR (Non-Af Amer) > 60 (> 60) BUN/Creatinine Ratio 12 (6-26) Glucose 133 H (70-99) mg/dL POC Glucose (58-89) Calculated Osmolality 285 (280-300) Calcium 8.9 (8.6-10.8) mg/dL Magnesium 1.6 (1.6-2.6) mg/dL Total Bilirubin (0.2-1.2) mg/dL AST (5-34) Units/L ALT (0-55) Units/L Alkaline Phosphatase (38-126) Units/L Serum Total Protein (6.0-8.3) g/dL Albumin (3.5-5.0) g/dL Globulin (2.4-3.5) g/dL Albumin/Globulin Ratio (1.1-2.2) Urine Color (Yellow) Urine Clarity (Clear) Urine pH (5.0-8.0) pH Units Ur Specific [place] (1.010-1.025) Urine Protein (Neg-Trace) mg/dL Urine Glucose (UA) (Normal) mg/dL Urine Ketones (Negative) mg/dL Urine Blood (Negative) Urine Nitrite (Negative) Urine Bilirubin (Negative) Urine Urobilinogen (Normal) mg/dL Ur Leukocyte Esterase (Negative) Urine Microscopic WBC (0-3) per hpf Ur Squamous Epith Cells (None-Few) per lpf Ur Culture Indicated? (NO) 07/12/16 07/12/16 Range/Units 05:43 11:34 WBC (4.3-11.1) K/mcL RBC (4.19-5.50) M/mcL Hgb (12.9-16.9) g/dL Hct (37.5-50.1) % MCV (83.0-100.0) fL MCH (28.0-33.3) pg MCHC (31.6-35.5) g/dL RDW (11.5-14.5) % Plt Count (140-400) K/mcL MPV (9.4-12.4) fL Immature Gran % (0-4) % Seg Neutrophils % % Lymphocytes % % Monocytes % % Eosinophils % % Basophils % % Neutrophils # (1.6-8.9) K/mcL Lymphocytes # (0.6-4.6) K/mcL Monocytes # (0.0-1.3) K/mcL Eosinophils # (0.0-0.6) K/mcL Basophils # (0.0-0.2) K/mcL Sodium (136-145) mEq/L Potassium (3.5-4.5) mEq/L Chloride (98-109) mEq/L Carbon Dioxide (19-29) mEq/L BUN (8-26) mg/dL Creatinine (0.72-1.25) mg/dL Est GFR ( Amer) (> 60) Est GFR (Non-Af Amer) (> 60) BUN/Creatinine Ratio (6-26) Glucose (70-99) mg/dL POC Glucose 123 H 168 H (58-89) Calculated Osmolality (280-300) Calcium (8.6-10.8) mg/dL Magnesium (1.6-2.6) mg/dL Total Bilirubin (0.2-1.2) mg/dL AST (5-34) Units/L ALT (0-55) Units/L Alkaline Phosphatase (38-126) Units/L Serum Total Protein (6.0-8.3) g/dL Albumin (3.5-5.0) g/dL Globulin (2.4-3.5) g/dL Albumin/Globulin Ratio (1.1-2.2) Urine Color (Yellow) Urine Clarity (Clear) Urine pH (5.0-8.0) pH Units Ur Specific [place] (1.010-1.025) Urine Protein (Neg-Trace) mg/dL Urine Glucose (UA) (Normal) mg/dL Urine Ketones (Negative) mg/dL Urine Blood (Negative) Urine Nitrite (Negative) Urine Bilirubin (Negative) Urine Urobilinogen (Normal) mg/dL Ur Leukocyte Esterase (Negative) Urine Microscopic WBC (0-3) per hpf Ur Squamous Epith Cells (None-Few) per lpf Ur Culture Indicated? (NO)
--- NOTE | 2016-07-12 14:35 | Electrocardiograph Report ---
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
--- NOTE | 2016-07-12 16:00 | Cardiology Consult Note ---
<Willie Maurer - Last Filed: 07/12/16 16:06> Date of Encounter: 07/12/16 Time of Encounter: 13:47 Assessment and Plan (1) Bradycardia Current Visit: Yes Status: Acute Asymptomatic bradycardia. HR countd as low as 39 bpm. HR increased when he ambulated in the hallway to the 70's. Agree with discontinuing carvedilol. Recently evaluated by cardiology and beta- alma was discontinued at that time. F/u holter monitor showed no more bradycardia. TTE 05/2016 showed normal EF. Cardiology will sign off. call with questions. F/u in 1-2 weeks. Discussion w patient/family: The assessment and plan as outlined above was discussed with the patient and/or family members who expressed understanding and agreement. All questions were answered. Thank you for involving us in the care of your patient. Please call with any questions. History of Present Illness Consult date: 07/12/16 Requesting physician: Romelia Simons Consult reason: asymptomatic bradycardia Chief complaint: abdominal pain, nausea, fever History of present illness: Mr. Baker is a 81 year old male with a history of hypertension, HLD, CVA, carotid artery disease s/p CEA, and asymptomatic bradycardia. He denies history of CAD. He is currently being treated for diverticulitis. Today he was seen to have a HR at 39 BPM taken on a vital machine. Cardiology was consulted for bradycardia. He denies symptoms. Denies dizziness or lightheadedness. Denies syncope. Denies fatigue or SOB. Denies chest pain. Continues to have mild reproducible abd pain. He did receive carvedilol this morning. He was seen by cardiology 05/31/16 for asymptomatic bradycardia noticed by his counting his pulse to be in the 30's. His bisoprolol was discontinued at that time. F/u 48 hr holter monitor did not show any recurrent bradycardia. He is not sure who started carvedilol since that time. Past Med Surg Social Fam HX - Past Medical History Medical history: arthritis, cancer, CVA, diabetes, GERD, hyperlipidemia, hypertension Psychiatric history: no psych history - Past Surgical History Surgical History: carotid endarterectomy, orthopedic, other - Social History Smoking Status: Former smoker Smokeless Tobacco Status: No Alcohol use: none Drug use: none - Family History Father Living Status: Age at : 88 Cause of : Heart attack Hx Family Cardiac Disorders: Yes Hx Family Respiratory Disorders: No Hx Family Cancer: Yes (Breast Cancer and Skin Cancer) Hx Family GI Disorders: Yes (Gerd) Hx Family Genitourinary Disorders: No Hx Family Endocrine Disorder: Yes (Diabetes) Hx Family Musculoskeletal Disorders: No Hx Family Neuromuscular Disorders: No Hx Family Neurologic Disorders: No Hx Family HEENT Disorders: No Hx Family Autoimmune Disorders: No Hx Family Reproductive Disorders: No Hx Family Psychosocial Disorders: No Hx Family Medical Disorders: No Medications and Allergies Aspirin 325 mg PO DAILY 07/10/16 [History] Atorvastatin [Lipitor] 40 mg PO HS 07/10/16 [History] Cholecalciferol (Vitamin D3) [Vitamin D] 1,000 unit PO DAILY 07/10/16 [History] Clopidogrel [Plavix] 75 mg PO DAILY 07/10/16 [History] Diclofenac Sodium [Voltaren] 1 appl TP QID PRN 07/10/16 [History] Famotidine [Famotidine] 40 mg PO DAILY 07/10/16 [History] Finasteride [Proscar] 5 mg PO DAILY 07/10/16 [History] Isosorbide MONOnitrate (24 HR) [Imdur] 30 mg PO DAILY 07/10/16 [History] Lansoprazole [Prevacid] 30 mg PO DAILY 07/10/16 [History] Losartan Potassium [Cozaar] 50 mg PO DAILY 07/10/16 [History] Metformin [Glucophage] 500 mg PO BIDWM 07/10/16 [History] Multivitamin [Multi-Day Vitamins] 1 each PO DAILY 07/10/16 [History] Nitroglycerin [Nitrostat] 0.4 mg SL Q5M PRN 07/10/16 [History] Allergies No Known Allergies Allergy (Verified 07/10/16 06:17) All Systems Review: A 10-system review of systems was performed and is negative for pertinent findings except as documented above in the HPI. Physical Examination Vital Signs, Last 4 Hours Temp Pulse Resp BP Pulse Ox 07/12/16 14:55 98.3 F 39 14 116/74 95 General: Conversant, No Apparent Distress HEENT: Atraumatic, Normocephaly, Mucus Membranes Moist Neck: No JVD, Normal carotid pulses Cardiac: Reg Rate and Rhythm, Normal S1 and S2, No Murmur Lungs: Normal Breath Sounds, No Wheeze, Rales, Rhonchi Neuro: Alert and responsive, No focal deficits noted Abdomen: Soft, Other (Mild tenderness to palpation) Skin: No rashes noted on visualized skin Musculoskeletal: No Chest Wall Tenderness Extremities: No Clubbing, No Cyanosis, No Edema, Normal Pulses Results 07/12/16 04:33 07/12/16 04:33 Lab Results 07/12/16 07/12/16 07/12/16 04:33 04:33 04:33 WBC 8.2 Hgb 13.5 Hct 40.3 Plt Count 172 Sodium 137 Potassium 3.8 Chloride 104 Carbon Dioxide 25 BUN 9 Creatinine 0.75 Glucose 133 H Calcium 8.9 Magnesium 1.6 - Imaging and Cardiology Echo: report reviewed (EF 60%, mild diastolic dysfunction, aortic valve sclerosis with no stennosis.) - EKG Interpretation EKG results cardiology: personally reviewed (SR with PVC, HR 72) Consult Discharge Plan - Plan Referrals: Leonard Villarreal MD [Primary Care Provider] - <Mady Jain - Last Filed: 07/12/16 16:42> Date of Encounter: 07/12/16 Assessment and Plan Discussion w patient/family: The assessment and plan as outlined above was discussed with the patient and/or family members who expressed understanding and agreement. All questions were answered. Thank you for involving us in the care of your patient. Please call with any questions. History of Present Illness History of present illness: Mr. Baker is a 81 year old male All Systems Review: A 10-system review of systems was performed and is negative for pertinent findings except as documented above in the HPI. Physical Examination Vital Signs, Last 4 Hours Temp Pulse Resp BP Pulse Ox 07/12/16 14:55 98.3 F 39 14 116/74 95 Results 07/12/16 04:33 07/12/16 04:33 Lab Results 07/12/16 07/12/16 07/12/16 04:33 04:33 04:33 WBC 8.2 Hgb 13.5 Hct 40.3 Plt Count 172 Sodium 137 Potassium 3.8 Chloride 104 Carbon Dioxide 25 BUN 9 Creatinine 0.75 Glucose 133 H Calcium 8.9 Magnesium 1.6 - Attending Attestation I examined this patient and my medical decision-making was reviewed with the PIPE ORGAN INSTALLER/PA/Advanced Practice Nurse/Resident Physician. I agree with the documented findings, disposition and treatment plan. Mr. Baker presents for diverticulitis and incidentally discovered to have bradycardic heart rates. He was initially seen in the cardiology office May 31 for bradycardia and his bisoprolol was stopped. He had a follow up holter demonstrating average heart rate 80's with minimum 57 off of beta alma. Then in June the called in concerned for elevated heart rates and coreg was started and he was referred to Dr. Erick Corrales but has not had the appointment yet. His heart rates per have been as low as 30. While in the hospital heart rate per nursing is 39. We recommend starting telemetry and stopping coreg. May consider more extended recording upon discharge.
[2016-07-12] MEDS ORDERED: Insulin LISPRO 300 UNITS/3 ML VIAL SQ SCH ×2 (17:00→21:00)
[2016-07-13] MEDS: MetroNIDAZOLE 500 MG/100 ML 500 MG/100 ML BAG IVPB SCH ×2 (01:00→07:48)
[2016-07-13] MEDS: *HR* Heparin 5,000 UNIT/ML VIAL SQ SCH ×2 (01:00→07:47)
[2016-07-13 06:54] VITALS: BP 113/73
[2016-07-13] MEDS: Insulin LISPRO 300 UNITS/3 ML VIAL SQ SCH (07:47)
--- NOTE | 2016-07-13 10:03 | Discharge Summary ---
Date of Encounter: 07/13/16 Time of Encounter: 10:03 - Discharge Diagnosis (1) Diverticulitis Priority: Primary Status: Acute Qualifiers: Diverticulitis site: large intestine Diverticulitis bleeding: without bleeding Diverticulitis complication: without perforation or abscess Qualified Code(s): K57.32 - Diverticulitis of large intestine without perforation or abscess without bleeding (2) CAD (coronary artery disease) Priority: Secondary Status: Acute Qualifiers: Coronary Disease-Associated Artery/Lesion type: [place] artery [place] vs. transplanted heart: [place] heart Associated angina: without angina Qualified Code(s): I25.10 - Atherosclerotic heart disease of [place] coronary artery without angina pectoris (3) DVT prophylaxis Priority: Secondary Status: Acute (4) Diabetes Priority: Secondary Status: Acute Qualifiers: Diabetes mellitus type: type 2 Diabetes mellitus complication status: without complication Diabetes mellitus manager long term care insulin use: without manager long term care use Qualified Code(s): E11.9 - Type 2 diabetes mellitus without complications (5) Hypertension Priority: Secondary Status: Chronic Qualifiers: Hypertension type: essential hypertension Qualified Code(s): I10 - Essential (primary) hypertension (6) Bradycardia Priority: Secondary Status: Acute - Discharge Medications Prescriptions: Ciprofloxacin [Cipro] 500 mg PO BID #20 tablet Docusate [Colace] 100 mg PO BID PRN #30 capsule PRN Reason: Constipation MetroNIDAZOLE [Metronidazole] 500 mg PO TID #30 tablet Home Medications: Aspirin 325 mg PO DAILY 07/10/16 [History] Atorvastatin [Lipitor] 40 mg PO HS 07/10/16 [History] Cholecalciferol (Vitamin D3) [Vitamin D3] 1,000 unit PO DAILY 07/10/16 [History] Clopidogrel [Plavix] 75 mg PO DAILY 07/10/16 [History] Diclofenac Sodium [Voltaren] 1 appl TP QID PRN 07/10/16 [History] Famotidine 40 mg PO DAILY 07/10/16 [History] Finasteride [Proscar] 5 mg PO DAILY 07/10/16 [History] Isosorbide MONOnitrate (24 HR) [Imdur] 30 mg PO DAILY 07/10/16 [History] Lansoprazole [Prevacid] 30 mg PO DAILY 07/10/16 [History] Losartan Potassium [Cozaar] 50 mg PO DAILY 07/10/16 [History] Metformin [Glucophage] 500 mg PO BIDWM 07/10/16 [History] Multivitamin [Multi-Day Vitamins] 1 each PO DAILY 07/10/16 [History] Nitroglycerin [Nitrostat] 0.4 mg SL Q5M PRN 07/10/16 [History] Ciprofloxacin [Cipro] 500 mg PO BID #20 tablet 07/13/16 [Rx] Docusate [Colace] 100 mg PO BID PRN #30 capsule 07/13/16 [Rx] MetroNIDAZOLE [Metronidazole] 500 mg PO TID #30 tablet 07/13/16 [Rx] Allergies/Adverse Reactions: Allergies No Known Allergies Allergy (Verified 07/10/16 06:17) Procedures/tests Complete & Pending: Procedures Performed prior 72 hours Category Date Time Status ECG 12 lead ECG [ECG] Routine Y 07/12/16 01:46 Completed EKG [ECG 12 lead ECG] [ECG] Stat Y 07/12/16 15:03 Completed Date of admission: 07/10/16 09:31 Primary care physician: Leonard Villarreal MD Consults: 07/12/16 15:05 Consult to Cardiology [CONS] Routine Comment: Consulting Provider: Cardiology [facility] Reason for Consult: Asymptomatic bradycardia with HR in 30s Time Notified: 15:05 Call Completed: Yes Discharging clinician: Romelia Simons Anticipated date of discharge: 07/13/16 - Patient Status Disposition: Home, Self-Care Condition: Good Functional capacity at discharge: independent ambulation Overall status at discharge: patient is progressing back to baseline - Discharge Instructions Instructions: Diverticulitis (DC), Chronic Hypertension (DC) Follow Up With: Leonard Villarreal MD [Primary Care Provider] - 07/18/16 1:15 pm Vicenta Coronado CNP [Partnered Physician] - 07/27/16 8:30 am - Diet and Activity Activity: resume usual activities as tolerated Diet: diabetic diet, low fat, low cholesterol, low salt diet, other ( diverticulitis diet) Hospital course: Mr. Baker is a 81 year old male was observed in hospital after presenting with acute abdominal pain. He was diagnosed with acute diverticulitis. He was treated with intravenous antibiotics. He improved with this treatment plan and his abdominal pain has mostly resolved. He is tolerating full liquid diet and feels much better. He is stable to be discharged home at this time. During his stay here, he was noted to have sinus bradycardic episodes with heart rate going down to the 30s. Patient was on carvedilol and this has now been stopped. Patient underwent a Holter monitor last month and was found to have bradycardic episodes and carvedilol have been held then. A repeat Holter monitor evaluation did not report any bradycardia. However patient was restarted on carvedilol in the interim. At this time, per cardiology recommendations, carvedilol has been stopped. Patient had no further episodes of that low heart rate. He has had episodes of SVT on his telemetry. He will follow-up with his take off worker after discharge for further management. - Time Spent with Patient Total time spent providing and/or coordinating discharge services: Greater than 30 minutes (32 min) - Constitutional Vitals: Temp Pulse Resp BP Pulse Ox 97.3 F L 88 10 113/73 94 L 07/13/16 06:51 07/13/16 06:51 07/13/16 06:51 07/13/16 06:51 07/13/16 06:51 General appearance: Present: cooperative, mild distress, A&O X 3, pleasant, answers questions appropriately - Respiratory Respiratory exam: Present: CTAB. Absent: accessory muscle use, rales, rhonchi, wheezes - Cardiovascular Cardiovascular exam: Present: RRR, +S1, +S2. Absent: diastolic murmur, gallop, rubs, systolic murmur - GI/Abdominal GI/Abdominal exam: Present: normal bowel sounds, soft, no peritoneal signs. Absent: distended, tenderness - Neurological Exam Neurological exam: Present: CN II-XII intact, oriented X3, no focal deficits. Absent: facial droop, speech deficit - VTE Documentation of Mechanical Device: Intermittent pneumatic compression device - Attending Attestation This document has been at least partially created by [employer] recognition technology by Dr. Simons. Errors in grammar, wording or other phrases may exist. If errors are found after the documentation is signed, they will be addressed individually in the addendum section of this document when appropriate.
[2016-07-13] MEDS: Cholecalciferol (D-3) 1,000 UNIT TABLET PO SCH (10:27)
[2016-07-13] MEDS: Finasteride 5 MG TABLET PO SCH (10:27)
[2016-07-13] MEDS: Isosorbide MONOnitrate (24 HR) 30 MG TAB.ER.24H PO SCH (10:27)
[2016-07-13] MEDS: Aspirin 325 MG TABLET PO SCH (10:27)
[2016-07-13] MEDS: Multivit/Ca/Min/Fe/FA 1 TAB TABLET PO SCH (10:27)
[2016-07-13] MEDS: Famotidine 20 MG TABLET PO SCH (10:30)
--- NOTE | 2016-07-13 11:09 | Event Note ---
Date of Encounter: 07/13/16 Time of Encounter: 11:05 - Cardiology Event Note Mr. Baker is discharge and I did not personally see him. I did review his telemetry. No significant bradycardia seen. Lowest HR was 56 BPM SR with bigemeny. There was frequent isolated PVC, no runs. No Pauses. No VT. One 11 beat run of SVT seen. Avg Hr was 73 bpm. F/u will be made with Dr. Erick Corrales in 1-2 weeks.
--- NOTE | 2016-07-13 11:21 | Electrocardiograph Report ---
[facility] Test Date: 2016-07-12 Pat Name: Killian Baker Department: 115 Room: 3A21 Gender: M Lapel Padder Blindstitch: VAZQUEZ : 1935 Requested By: Romelia Simons Order Number: [id number] Reading MD: Rico Hernandez MD Measurements Intervals [place] Rate: 68 P: 25 VT: 127 QRS: 23 QRSD: 94 T: 46 QT: 394 QTc: 411 Interpretive Statements SINUS RHYTHM Electronically Signed On 07-13-16 11:19:54 EST by Rico Hernandez MD
== END 2016-07-13 10:59 | disposition home or self-care (01) ==
LOC: EMEROO 06:16 → 3ANU 06:16 → SUATTDRO 09:31 → 3ANU 10:57
PROVIDERS: ADMIT Internal Medicine; ATTEND Internal Medicine

== ENCOUNTER 2017-02-17 04:51 | Observation (INO) ==
[2017-02-17] MEDS ORDERED: Aspirin 81 MG TAB.CHEW PO ONE (05:21)
--- NOTE | 2017-02-17 05:24 | Emergency Department Note ---
Disposition Clinical Impression: Chest pain Qualifiers: Chest pain type: unspecified Qualified Code(s): R07.9 - Chest pain, unspecified Disposition: Still a Patient Condition: Fair Forms: ED Satisfaction Letter Time of Disposition: 05:52 Chest Pain HPI - General Chief Complaint: ED Chest Pain Stated Complaint: CP Time Seen by Provider: 02/17/17 05:21 Source: patient, family Limitations: no limitations Vital Signs Reviewed: Yes Nursing Notes Reviewed: Yes - History of Present Illness HPI Narrative: Alert and oriented and nontoxic-appearing 81-year-old male presents for evaluation of substernal chest pain that awoke him from his sleep at approximately 0100 hours this morning. He states that he first awoke with a sensation of nausea and then describes a tightness in his chest. He states this tightness radiated into his left upper arm. He denies any diaphoresis, vomiting, or recent upper respiratory symptoms. He did self administer one nitroglycerin tablet at home prior to coming to the emergency department. By the time of his arrival, his chest pain is completely resolved. Pt complaint: chest pain Onset (ago): hour(s) (Approximately 0100 hours this morning) Onset: awoke with symptoms Pain Location: substernal Severity: now resolved Severity scale (1-10): 0 Quality: tightness Pain Radiation: LUE Improves with: nitroglycerin Worsens with: nothing Associated symptoms: Reports: nausea - Related Data Home Medications Medication Instructions Recorded Confirmed Aspirin 325 mg PO DAILY 07/10/16 07/10/16 Atorvastatin [Lipitor] 40 mg PO HS 07/10/16 07/10/16 Cholecalciferol (Vitamin D3) 1,000 unit PO DAILY 07/10/16 07/10/16 [Vitamin D3] Clopidogrel [Plavix] 75 mg PO DAILY 07/10/16 07/10/16 Diclofenac Sodium [Voltaren] 1 appl TP QID PRN 07/10/16 07/10/16 Famotidine 40 mg PO DAILY 07/10/16 07/10/16 Finasteride [Proscar] 5 mg PO DAILY 07/10/16 07/10/16 Isosorbide MONOnitrate (24 HR) 30 mg PO DAILY 07/10/16 07/10/16 [Imdur] Lansoprazole [Prevacid] 30 mg PO DAILY 07/10/16 07/10/16 Losartan Potassium [Cozaar] 50 mg PO DAILY 07/10/16 07/10/16 Multivitamin [Multi-Day Vitamins] 1 each PO DAILY 07/10/16 07/10/16 Nitroglycerin [Nitrostat] 0.4 mg SL Q5M PRN 07/10/16 07/10/16 metFORMIN [Glucophage] 500 mg PO BIDWM 07/10/16 07/10/16 Previous Rx's Medication Instructions Recorded Ciprofloxacin [Cipro] 500 mg PO BID #20 tablet 07/13/16 Docusate [Colace] 100 mg PO BID PRN #30 capsule 07/13/16 metroNIDAZOLE [Metronidazole] 500 mg PO TID #30 tablet 07/13/16 Allergies Allergy/AdvReac Type Severity Reaction Status Date / Time No Known Allergies Allergy Verified 07/10/16 06:17 All systems ED: reviewed and negative except as stated. Constitutional: Denies: fever, chills, weakness, weight change Eyes: Denies: eye pain, eye discharge, vision change ENT ED: Denies: ear pain, throat pain, dental pain, hearing loss, epistaxis, congestion, dysphagia Cardiovascular: Reports: as per HPI, chest pain. Denies: palpitations, dyspnea on exertion, edema, syncope Respiratory: Denies: cough, dyspnea, wheezes, hemoptysis, stridor Gastrointestinal: Reports: as per HPI, nausea. Denies: abdominal pain, vomiting , diarrhea, constipation, hematemesis, melena, hematochezia Genitourinary: Denies: urgency, dysuria, frequency, hematuria Musculoskeletal: Denies: back pain, neck pain, arthralgia, myalgia Integumentary: Denies: rash, abrasion, lesions Neurological: Denies: headache, weakness, numbness, paresthesias, confusion, abnormal gait, vertigo Psychiatric: Denies: anxiety, depression, suicidal thoughts, homicidal thoughts , auditory hallucinations, visual hallucinations Endocrine: Denies: fatigue Hematological/Lymphatic: Denies: easy bleeding, easy bruising Allergic/Immunologic: Denies: facial swelling, urticaria Chest Pain PMH - Past Medical History Medical history: Reports: arthritis, cancer, CVA, diabetes, GERD, hyperlipidemia , hypertension Surgical history: Reports: carotid endarterectomy, orthopedic, other Psychiatric history: Reports: no psych history - Social History Smoking Status: Former smoker Alcohol use: Reports: none Drug use: Reports: none Physical Exam - General Limitations: no limitations General appearance: alert, in no apparent distress - Head Head exam: atraumatic, normocephalic, normal inspection - Eye Eye exam: Present: normal appearance, PERRL, EOMI. Absent: nystagmus - ENT ENT exam: mucous membranes moist - Neck Neck exam: Present: normal inspection, full ROM, trachea midline - Chest Chest inspection: Present: normal inspection, symmetric chest wall rise - Respiratory Respiratory exam: Present: normal lung sounds bilaterally. Absent: respiratory distress, wheezes, stridor, accessory muscle use, prolonged expiratory phase - Cardiovascular Cardiovascular exam: Present: regular rate, normal rhythm, normal heart sounds - Abdominal Exam Abdominal exam: Present: soft, Non-Tender, normal bowel sounds. Absent: tenderness, distention, guarding, rebound, rigidity - Extremities Exam Extremities exam: Present: normal inspection, full ROM. Absent: tenderness, pedal edema - Neurological Exam Neurological exam: Present: alert, oriented X3 - Psychiatric Psychiatric exam: Present: normal affect, normal mood - Skin Skin exam: Present: warm, dry, intact, normal color Course Vital Signs Temperature 97.4 F L 02/17/17 04:55 Pulse Rate 75 02/17/17 04:55 Respiratory Rate 16 02/17/17 04:55 Blood Pressure 142/84 02/17/17 04:55 O2 Sat by Pulse Oximetry 96 02/17/17 04:55 Temperature 97.4 F L 02/17/17 04:55 Pulse Rate 73 02/17/17 05:31 Respiratory Rate 18 02/17/17 05:31 Blood Pressure 127/70 02/17/17 05:31 O2 Sat by Pulse Oximetry 96 02/17/17 05:31 Oxygen Delivery Oxygen Delivery Room Air Chest Pain - Medical Records Medical records reviewed: Yes I reviewed the patient's medical records. - Lab Data Lab results reviewed: Yes I reviewed the patient's lab results. - Radiology Data Radiology results reviewed: Yes I reviewed the patient's radiology results. - EKG Data EKG attestation: Yes I reviewed and interpreted this EKG. EKG results narrative: EKG reviewed by Dr. Dutta as well. EKG shows a sinus rhythm with a nonspecific T-wave abnormality at a rate of 79 bpm. CA interval 147, QRS duration 87, QT/QTc interval 354/388. No ectopy noted. No STEMI. S.B.Neela. - S.Alanna.Frank Situation: Demographics, MOA Background: Presenting Complaint, Relevant PMH, Meds, & Allergies Assessment: Vital Signs, Course and respsone to treatment, Exam Concerns, Patient/Family Expectation, Pertinant Lab Results, Outstanding Labs Recommendation: Barrier(s) to disposition, Recommendation based on pending studies, treatments, or consults S.Alanna.Frank Report Given to: SARAH Wheeler Repor Time: 06:00 Attestation Statement - Attestation Attestation: For this encounter, I have reviewed the [employer] or PA documentation, treatment plan, and medical decision making; and I have had face to face time with this patient. Patient presenting with chest pain and elevated heart score. We will proceed with admission for ACS rule out. Aspirin and nitroglycerin be administered.
[2017-02-17 05:54] LABS: Basophils # 0.1 K/mcL (0.0-0.2); Basophils % 0.9 %; Eosinophils % 11.8 %; Hematocrit 40.1 % (37.5-50.1); Hemoglobin 13.3 g/dL (12.9-16.9); Immature Granulocytes % 0.5 % (0-4); Lymphocytes # 1.4 K/mcL (0.6-4.6); Mean Corpuscular HGB Conc 33.2 g/dL (31.6-35.5); Mean Corpuscular Hemoglobin 27.8 pg (28.0-33.3); Mean Corpuscular Volume 83.9 fL (83.0-100.0); Monocytes # 0.9 K/mcL (0.0-1.3); Platelet Count 197 K/mcL (140-400); Red Blood Count 4.78 M/mcL (4.19-5.50); Red Cell Distribution Width 13.4 % (11.5-14.5); Segmented Neutrophils % 58.8 %
[2017-02-17 06:03] LABS: INR 1.2; Prothrombin Time 12.7 Seconds (9.4-12.1)
[2017-02-17 06:06] LABS: Activated Partial Thrombo Time 29.3 Seconds (26.0-36.0)
[2017-02-17 06:12] LABS: BUN/Creatinine Ratio 18 (6-26); Blood Urea Nitrogen 15 mg/dL (8-26); Calcium 9.1 mg/dL (8.6-10.8); Carbon Dioxide 26 mEq/L (19-29); Chloride 105 mEq/L (98-109); Glucose 108 mg/dL (70-99); Osmolality,Calculated 287 (280-300); Potassium 4.2 mEq/L (3.5-4.5); Sodium 138 mEq/L (136-145); eGFR For African Americans > 60 (> 60); eGFR For Non-African Americans > 60 (> 60)
[2017-02-17] MEDS ORDERED: Naloxone 0.4 MG/ML INJ IVP PRN ×2 (06:34→08:59)
--- NOTE | 2017-02-17 08:13 | Emergency Department Note ---
Disposition Clinical Impression: NSTEMI (non-ST elevated myocardial infarction) Chest pain Qualifiers: Chest pain type: unspecified Qualified Code(s): R07.9 - Chest pain, unspecified Disposition: Admitted As Inpatient Condition: Fair Referrals: Leonard Villarreal MD [Primary Care Provider] - Forms: ED Satisfaction Letter Chest Pain HPI - General Chief Complaint: ED Chest Pain Stated Complaint: CP Time Seen by Provider: 02/17/17 05:21 Source: patient, family Limitations: no limitations - History of Present Illness Pain Location: substernal Severity scale (1-10): 0 Quality: tightness Improves with: nitroglycerin Worsens with: nothing Associated symptoms: Reports: nausea - Related Data Home Medications Medication Instructions Recorded Confirmed Aspirin 325 mg PO DAILY 07/10/16 07/10/16 Atorvastatin [Lipitor] 40 mg PO HS 07/10/16 07/10/16 Cholecalciferol (Vitamin D3) 1,000 unit PO DAILY 07/10/16 07/10/16 [Vitamin D3] Clopidogrel [Plavix] 75 mg PO DAILY 07/10/16 07/10/16 Diclofenac Sodium [Voltaren] 1 appl TP QID PRN 07/10/16 07/10/16 Famotidine 40 mg PO DAILY 07/10/16 07/10/16 Finasteride [Proscar] 5 mg PO DAILY 07/10/16 07/10/16 Isosorbide MONOnitrate (24 HR) 30 mg PO DAILY 07/10/16 07/10/16 [Imdur] Lansoprazole [Prevacid] 30 mg PO DAILY 07/10/16 07/10/16 Losartan Potassium [Cozaar] 50 mg PO DAILY 07/10/16 07/10/16 Multivitamin [Multi-Day Vitamins] 1 each PO DAILY 07/10/16 07/10/16 Nitroglycerin [Nitrostat] 0.4 mg SL Q5M PRN 07/10/16 07/10/16 metFORMIN [Glucophage] 500 mg PO BIDWM 07/10/16 07/10/16 Previous Rx's Medication Instructions Recorded Ciprofloxacin [Cipro] 500 mg PO BID #20 tablet 07/13/16 Docusate [Colace] 100 mg PO BID PRN #30 capsule 07/13/16 metroNIDAZOLE [Metronidazole] 500 mg PO TID #30 tablet 07/13/16 Allergies Allergy/AdvReac Type Severity Reaction Status Date / Time No Known Allergies Allergy Verified 07/10/16 06:17 Constitutional: Denies: fever, chills, weakness, weight change Eyes: Denies: eye pain, eye discharge, vision change ENT ED: Denies: ear pain, throat pain, dental pain, hearing loss, epistaxis, congestion, dysphagia Cardiovascular: Reports: as per HPI, chest pain. Denies: palpitations, dyspnea on exertion, edema, syncope Respiratory: Denies: cough, dyspnea, wheezes, hemoptysis, stridor Gastrointestinal: Reports: as per HPI, nausea. Denies: abdominal pain, vomiting , diarrhea, constipation, hematemesis, melena, hematochezia Genitourinary: Denies: urgency, dysuria, frequency, hematuria Musculoskeletal: Denies: back pain, neck pain, arthralgia, myalgia Integumentary: Denies: rash, abrasion, lesions Neurological: Denies: headache, weakness, numbness, paresthesias, confusion, abnormal gait, vertigo Psychiatric: Denies: anxiety, depression, suicidal thoughts, homicidal thoughts , auditory hallucinations, visual hallucinations Endocrine: Denies: fatigue Hematological/Lymphatic: Denies: easy bleeding, easy bruising Allergic/Immunologic: Denies: facial swelling, urticaria Chest Pain PMH - Past Medical History Medical history: Reports: arthritis, cancer, CVA, diabetes, GERD, hyperlipidemia , hypertension Surgical history: Reports: carotid endarterectomy, orthopedic, other Psychiatric history: Reports: no psych history - Social History Smoking Status: Former smoker Alcohol use: Reports: none Drug use: Reports: none Physical Exam - General Limitations: no limitations General appearance: alert, in no apparent distress Course Course Narrative: Assumed care of this patient from [facility] at [facility] change. Patient had chest pain that woke him up. His gave him one nitroglycerine which relieved the pain. His pain has not returned. He is resting comfortably and has no complaints. Troponin is pending. Troponin is elevated 0.14. Patient will be admitted. Hospitalist contacted. Patient accepted by the Hospitalist. He requested that Cardiology be called for mahendra on stress test as we are currently holding patients. Dr. Jain was paged. Vital Signs Temperature 97.4 F L 02/17/17 04:55 Pulse Rate 75 02/17/17 04:55 Respiratory Rate 16 02/17/17 04:55 Blood Pressure 142/84 02/17/17 04:55 O2 Sat by Pulse Oximetry 96 02/17/17 04:55 Temperature 97.4 F L 02/17/17 04:55 Pulse Rate 69 02/17/17 06:09 Respiratory Rate 16 02/17/17 07:52 Blood Pressure 154/90 02/17/17 07:52 O2 Sat by Pulse Oximetry 95 02/17/17 06:09 Oxygen Delivery Oxygen Delivery Room Air Chest Pain - Lab Data Result diagrams: 02/17/17 05:45 02/17/17 05:45 Lab Results 02/17/17 02/17/17 02/17/17 Range/Units 05:45 05:45 05:45 WBC 8.5 (4.3-11.1) K/mcL RBC 4.78 (4.19-5.50) M/mcL Hgb 13.3 (12.9-16.9) g/dL Hct 40.1 (37.5-50.1) % MCV 83.9 (83.0-100.0) fL MCH 27.8 L (28.0-33.3) pg MCHC 33.2 (31.6-35.5) g/dL RDW 13.4 (11.5-14.5) % Plt Count 197 (140-400) K/mcL MPV 10.0 (9.4-12.4) fL Immature Gran % 0.5 (0-4) % Seg Neutrophils % 58.8 % Lymphocytes % 17.0 % Monocytes % 11.0 % Eosinophils % 11.8 % Basophils % 0.9 % Neutrophils # 5.0 (1.6-8.9) K/mcL Lymphocytes # 1.4 (0.6-4.6) K/mcL Monocytes # 0.9 (0.0-1.3) K/mcL Eosinophils # 1.0 H (0.0-0.6) K/mcL Basophils # 0.1 (0.0-0.2) K/mcL PT (9.4-12.1) Seconds INR APTT (26.0-36.0) Seconds Sodium 138 (136-145) mEq/L Potassium 4.2 (3.5-4.5) mEq/L Chloride 105 (98-109) mEq/L Carbon Dioxide 26 (19-29) mEq/L BUN 15 (8-26) mg/dL Creatinine 0.82 (0.72-1.25) mg/dL Est GFR ( Amer) > 60 (> 60) Est GFR (Non-Af Amer) > 60 (> 60) BUN/Creatinine Ratio 18 (6-26) Glucose 108 H (70-99) mg/dL Calculated Osmolality 287 (280-300) Calcium 9.1 (8.6-10.8) mg/dL Troponin I 0.14 H* (0-0.03) ng/mL 02/17/17 Range/Units 05:45 WBC (4.3-11.1) K/mcL RBC (4.19-5.50) M/mcL Hgb (12.9-16.9) g/dL Hct (37.5-50.1) % MCV (83.0-100.0) fL MCH (28.0-33.3) pg MCHC (31.6-35.5) g/dL RDW (11.5-14.5) % Plt Count (140-400) K/mcL MPV (9.4-12.4) fL Immature Gran % (0-4) % Seg Neutrophils % % Lymphocytes % % Monocytes % % Eosinophils % % Basophils % % Neutrophils # (1.6-8.9) K/mcL Lymphocytes # (0.6-4.6) K/mcL Monocytes # (0.0-1.3) K/mcL Eosinophils # (0.0-0.6) K/mcL Basophils # (0.0-0.2) K/mcL PT 12.7 H (9.4-12.1) Seconds INR 1.2 APTT 29.3 (26.0-36.0) Seconds Sodium (136-145) mEq/L Potassium (3.5-4.5) mEq/L Chloride (98-109) mEq/L Carbon Dioxide (19-29) mEq/L BUN (8-26) mg/dL Creatinine (0.72-1.25) mg/dL Est GFR ( Amer) (> 60) Est GFR (Non-Af Amer) (> 60) BUN/Creatinine Ratio (6-26) Glucose (70-99) mg/dL Calculated Osmolality (280-300) Calcium (8.6-10.8) mg/dL Troponin I (0-0.03) ng/mL
--- NOTE | 2017-02-17 08:48 | Internal Med History&Physical ---
Date of Encounter: 02/17/17 Time of Encounter: 08:45 Assessment and Plan (1) Hypertension Current visit: No Status: Chronic will resume home medication, blood pressure acceptable. Qualifiers: Hypertension type: essential hypertension Qualified Code(s): I10 - Essential (primary) hypertension (2) Diabetes Current visit: No Status: Acute We will start low-dose insulin sliding scale. Patient to be nothing by mouth for now until cardiology evaluation, patient may need to go for LHC. 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 Patient took one dose of nitroglycerin and was given a dose of aspirin at 80. Monitor for chest pain, nitroglycerin when necessary. Given elevated troponin, concerning for an NSTEMI/unstable angina. Qualifiers: Chest pain type: unspecified Qualified Code(s): R07.9 - Chest pain, unspecified (4) NSTEMI (non-ST elevated myocardial infarction) Current visit: Yes Status: Acute initial trop elevated at 0.14. typical chest pain, non specific EKG changes. no more chest pain risk factors HTN and DM, no h/o heart attacks or stent placement in the past. jayme trend trop, consult cardio will start heparin drip, asa, bb. may need LHC, will follow cardio recommendations Internal Medicine - H&P: HPI Chief complaint: chest pain Admitted From: Home Plans for Post Hospital Care: Home History of present illness: Mr. Baker is a 81 year old male with PMH of HTN, DM presented with substernal chest pain that awoke him from his sleep at approximately 0100 hours this morning. He states that he first awoke with a sensation of indigestion and nausea and then describes a tightness in his chest. He states this tightness radiated into his left upper arm. He denies any diaphoresis, vomiting, or recent upper respiratory symptoms. He did self administer one nitroglycerin tablet at home prior to coming to the emergency department. By the time of his arrival, his chest pain is completely resolved. he was given one aspirin tablet to chew. at the time of my assement, he has no chest pain as per the , he has been c/o chest pain once in a whle for the last yr, denies sob, orthopnea or PND. no significant cardiac history. quit smoking, his father of heart attack. Past Med Surg Social Fam HX - Past Medical History Medical history: arthritis, cancer, CVA, diabetes, GERD, hyperlipidemia, hypertension Psychiatric history: no psych history - Past Surgical History Surgical History: carotid endarterectomy, orthopedic, other - Social History Smoking Status: Former smoker Smokeless Tobacco Status: No Alcohol use: none Drug use: none - Family History Father Living Status: Hx Family Cardiac Disorders: Yes Hx Family Respiratory Disorders: No Hx Family Cancer: Yes (Breast Cancer and Skin Cancer) Hx Family GI Disorders: Yes (Gerd) Hx Family Endocrine Disorder: Yes (Diabetes) Hx Family Neuromuscular Disorders: No Hx Family Neurologic Disorders: No Hx Family HEENT Disorders: No Hx Family Autoimmune Disorders: No Internal Medicine - H&P: Meds Aspirin 325 mg PO DAILY 07/10/16 [History] Atorvastatin [Lipitor] 40 mg PO HS 07/10/16 [History] Cholecalciferol (Vitamin D3) [Vitamin D3] 1,000 unit PO DAILY 07/10/16 [History] Clopidogrel [Plavix] 75 mg PO DAILY 07/10/16 [History] Diclofenac Sodium [Voltaren] 1 appl TP QID PRN 07/10/16 [History] Famotidine 40 mg PO DAILY 07/10/16 [History] Finasteride [Proscar] 5 mg PO DAILY 07/10/16 [History] Isosorbide MONOnitrate (24 HR) [Imdur] 30 mg PO DAILY 07/10/16 [History] Lansoprazole [Prevacid] 30 mg PO DAILY 07/10/16 [History] Losartan Potassium [Cozaar] 50 mg PO DAILY 07/10/16 [History] Multivitamin [Multi-Day Vitamins] 1 each PO DAILY 07/10/16 [History] Nitroglycerin [Nitrostat] 0.4 mg SL Q5M PRN 07/10/16 [History] metFORMIN [Glucophage] 500 mg PO BIDWM 07/10/16 [History] Ciprofloxacin [Cipro] 500 mg PO BID #20 tablet 07/13/16 [Rx] Docusate [Colace] 100 mg PO BID PRN #30 capsule 07/13/16 [Rx] metroNIDAZOLE [Metronidazole] 500 mg PO TID #30 tablet 07/13/16 [Rx] Allergies No Known Allergies Allergy (Verified 07/10/16 06:17) All Systems PM: A 10-system review of systems was performed and is negative for pertinent findings except as documented above in the HPI. - EENT Eyes: as per HPI Ears: as per HPI Nose, mouth and throat: as per HPI - Breasts Breasts: as per HPI - Cardiovascular Cardiovascular ROS IM: as per HPI - Respiratory Respiratory: as per HPI - Gastrointestinal Gastrointestinal: as per HPI - Genitourinary Genitourinary ROS male: as per HPI - Musculoskeletal Musculoskeletal ROS IM: as per HPI - Constitutional Vitals: Temp Pulse Resp BP Pulse Ox 97.4 F L 69 16 154/90 95 02/17/17 04:55 02/17/17 06:09 02/17/17 07:52 02/17/17 07:52 02/17/17 06:09 General appearance: Present: A&O X 3, no acute distress Exam: neck- supple chest- b/l clear, no added sounds, no reproducible chest wall tenderness CVS-s1 and s2, no mr//g abd-soft, non tender, bs are present ext- no edema neuro- no focal defecits Internal Med - H&P Results - Labs CBC & Chem 7: 02/17/17 05:45 02/17/17 05:45 Labs: Cardiac Enzymes 02/17/17 Range/Units 07:44 Troponin I 0.16 H* (0-0.03) ng/mL
[2017-02-17] MEDS ORDERED: *HR* Morphine 2 MG/ML SYRINGE IVP PRN (08:59)
[2017-02-17] MEDS ORDERED: Nitroglycerin 0.4 MG TAB.SUBL SL PRN (09:00)
[2017-02-17] MEDS ORDERED: Isosorbide MONOnitrate (24 HR) 30 MG TAB.ER.24H PO SCH (09:00)
[2017-02-17] MEDS ORDERED: D5% in Water 1,000 ML IVC PRN (09:04)
[2017-02-17] MEDS ORDERED: Dextrose Gel 15 GM PO PRN ×2 (09:04)
[2017-02-17] MEDS ORDERED: *HR* Dextrose 50 % in Water (Syg) 50 ML SYRINGE IVP PRN (09:04)
[2017-02-17] MEDS ORDERED: Heparin 25,000 UNIT/500 ML D5W 25,000 UNIT/500 ML MLS IVC SCH (09:15)
[2017-02-17] MEDS ORDERED: 0.9 % Sodium Chloride 1,000 ML IVC SCH (09:15)
--- NOTE | 2017-02-17 09:37 | Cardiology Consult Note ---
<Eduard Wilson - Last Filed: 02/17/17 12:44> Date of Encounter: 02/17/17 Time of Encounter: 09:00 Assessment and Plan (1) NSTEMI (non-ST elevated myocardial infarction) Current Visit: Yes Status: Acute Patient has a ASHLEY score of 4, which correlates to a 7-20% 2-week risk of HI. His troponin is elevated at 0.16. EKG shows a sinus rhythm with no ST elevations. Last echo on 06/2016 shows a LVEF of 60%. Patient has NPO diet and is on heparin. Current recommendation is a cardiac catheterization. (2) CAD (coronary artery disease) Current Visit: No Status: Acute Continue with atorvastatin, aspirin, heparin, low dose metoprolol, and plavix. Patient has a history of bradycardia. His HR range has been from 65-70 since admission. Continue to monitor for changes. Qualifiers: Coronary Disease-Associated Artery/Lesion type: [place] artery [place] vs. transplanted heart: [place] heart Associated angina: without angina Qualified Code(s): I25.10 - Atherosclerotic heart disease of [place] coronary artery without angina pectoris Discussion w patient/family: The assessment and plan as outlined above was discussed with the patient and/or family members who expressed understanding and agreement. All questions were answered. Thank you for involving us in the care of your patient. Please call with any questions. History of Present Illness Consult date: 02/17/17 Requesting physician: Lucero Brar Consult reason: Chest Pain Chief complaint: Chest Pain History of present illness: Mr. Baker is a 81 year old male with a PMH of CAD, DM, and carotid artery disease s/p R CEA (12/12/13) that presented to the ER this morning for chest pain. Patient says that around 0100 in the morning, he started to experience chest tightness and pressure along with minor shortness of breath which awoke him from sleep. The pain was a 2/10 in pain scale and lasted for an hour until he decided to take 2 nitroglycerin tabs which relieved the pain shortly. He admits the pain radiated to his left arm. He denies any syncope, light- headedness, or vision changes. A few hours later, the patient decided to drive to the ER to be assessed and started experiencing the same type of chest pain along the way. He claims the pain subsided shortly after arrival to the ER. His troponins on arrival were elevated at 0.14 (currently 0.16). EKG on arrival showed a sinus rhythm with no ST-elevations. Patient takes Plavix at home and has been off beta blockers since 08/05/16 secondary to bradycardia. Patient's last echocardiogram showed a LVEF of 60% and has a history of a remote cardiac catheterization. He currently denies any chest pain, shortness of breath, palpitations, or syncope. Past Med Surg Social Fam HX - Past Medical History Medical history: arthritis, cancer, CVA, diabetes, GERD, hyperlipidemia, hypertension Psychiatric history: no psych history - Past Surgical History Surgical History: carotid endarterectomy, orthopedic, other - Social History Smoking Status: Former smoker Smokeless Tobacco Status: No Alcohol use: none Drug use: none - Family History Father Living Status: Hx Family Cardiac Disorders: Yes Hx Family Respiratory Disorders: No Hx Family Cancer: Yes (Breast Cancer and Skin Cancer) Hx Family GI Disorders: Yes (Gerd) Hx Family Endocrine Disorder: Yes (Diabetes) Hx Family Neuromuscular Disorders: No Hx Family Neurologic Disorders: No Hx Family HEENT Disorders: No Hx Family Autoimmune Disorders: No Medications and Allergies Aspirin 325 mg PO DAILY 07/10/16 [History] Atorvastatin [Lipitor] 40 mg PO HS 07/10/16 [History] Cholecalciferol (Vitamin D3) [Vitamin D3] 1,000 unit PO DAILY 07/10/16 [History] Clopidogrel [Plavix] 75 mg PO DAILY 07/10/16 [History] Diclofenac Sodium [Voltaren] 1 appl TP QID PRN 07/10/16 [History] Famotidine 40 mg PO DAILY 07/10/16 [History] Finasteride [Proscar] 5 mg PO DAILY 07/10/16 [History] Isosorbide MONOnitrate (24 HR) [Imdur] 30 mg PO DAILY 07/10/16 [History] Lansoprazole [Prevacid] 15 - 30 mg PO DAILY 07/10/16 [History] Losartan Potassium [Cozaar] 50 mg PO DAILY 07/10/16 [History] Multivitamin [Multi-Day Vitamins] 1 each PO DAILY 07/10/16 [History] Nitroglycerin [Nitrostat] 0.4 mg SL Q5M PRN 07/10/16 [History] metFORMIN [Glucophage] 500 mg PO BIDWM 07/10/16 [History] Docusate [Colace] 100 mg PO BID PRN #30 capsule 07/13/16 [Rx] Meloxicam [Mobic] 7.5 mg PO BID 02/17/17 [History] Allergies No Known Allergies Allergy (Verified 07/10/16 06:17) All Systems Review: A 10-system review of systems was performed and is negative for pertinent findings except as documented above in the HPI. - Constitutional Constitutional: no headache(s) - EENT Eyes: no blurred vision - Cardiovascular Cardiovascular: no chest pain at rest, no dyspnea at rest, no radiating jaw, neck or arm pain, no leg edema, no lightheadedness, no palpitations, no rapid heart rate, no syncope - Respiratory Respiratory: no dyspnea - Gastrointestinal Gastrointestinal: no abdominal pain, no nausea - Neurological Neurological: no dizziness Physical Examination Vital Signs, Last 4 Hours Temp Pulse Resp BP Pulse Ox 02/17/17 08:50 97.6 F 68 16 157/70 98 02/17/17 07:52 16 154/90 General: Conversant, No Apparent Distress Neck: No JVD, Normal carotid pulses Cardiac: Reg Rate and Rhythm, Normal S1 and S2, No Murmur Lungs: Normal Breath Sounds, No Wheeze, Rales, Rhonchi Neuro: Alert and responsive Abdomen: Soft, Other (Minor reproducible discomfort upon palpation. ) Musculoskeletal: No Chest Wall Tenderness Extremities: No Clubbing, No Cyanosis, No Edema, Normal Pulses Results 02/17/17 05:45 02/17/17 05:45 Lab Results Laboratory Tests 02/17/17 02/17/17 02/17/17 05:45 05:45 05:45 PT 12.7 H INR 1.2 APTT 29.3 Potassium 4.2 Creatinine 0.82 Est GFR (Non-Af Amer) > 60 Troponin I 0.14 H* 02/17/17 07:44 PT INR APTT Potassium Creatinine Est GFR (Non-Af Amer) Troponin I 0.16 H* - Imaging and Cardiology Chest Xray: report reviewed (Negative.) Echo: report reviewed (Last echo from 04/20/16 showed a LVEF of 60% with mild diastolic dysfunction of the LV. Unable to assess RVSP due to inadequate TR jet.) - EKG Interpretation EKG results cardiology: personally reviewed (Compared current EKG to previous one from 07/12/2016 and showed no significant acute changes. Sinus rhytm with no ST elevations.) Consult Discharge Plan - Plan Referrals: Leonard Villarreal MD [Primary Care Provider] - <Mady Jain - Last Filed: 02/17/17 13:16> Date of Encounter: 02/17/17 Assessment and Plan Discussion w patient/family: The assessment and plan as outlined above was discussed with the patient and/or family members who expressed understanding and agreement. All questions were answered. Thank you for involving us in the care of your patient. Please call with any questions. History of Present Illness History of present illness: Mr. Baker is a 81 year old male All Systems Review: A 10-system review of systems was performed and is negative for pertinent findings except as documented above in the HPI. Results 02/17/17 05:45 02/17/17 05:45 Lab Results 02/17/17 07:44 Troponin I 0.16 H* - Attending Attestation I examined this patient and my medical decision-making was reviewed with the Resident Physician. I agree with the documented findings, disposition and treatment plan. Mr. Baker presents with 2 episodes of chest pain overnight relieved with NTG. His ECG is without ischemic findings but troponin is elevated at 0.16. He has CV risk factors including diabetes, male gender, HPL, HTN and known vascular disease s/p R CEA. Given findings of NSTEMI, I have recommended proceeding with C. The R/B/A of the procedure were discussed with the patient. His was present for the discussion. The patient expressed understanding of the procedure and associated risks and agreed to proceed. He denies any upcoming elective procedures or any history of bleeding requiring hospitalization. He does have a history of diverticulitis. Further recommendations to follow testing.
[2017-02-17] MEDS ORDERED: Heparin 1,000 UNITS/500 mL NS 500 ML ONE (10:55)
[2017-02-17] MEDS ORDERED: *HR* Heparin 10,000 UNIT/10 ML VIAL ONE (10:55)
[2017-02-17] MEDS ORDERED: 0.9 % Sodium Chloride 1,000 ML ONE (10:55)
[2017-02-17] MEDS ORDERED: *HR* Midazolam HCl 2 MG/2 ML VIAL ONE (11:00)
[2017-02-17] MEDS ORDERED: *HR* FentaNYL (PF) 100 MCG/2 ML VIAL ONE (11:01)
--- NOTE | 2017-02-17 11:17 | Pre-Sedation Evaluation ---
Pre-sedation evaluation - Pre-sedation checklist Date of procedure: 02/17/17 Procedure: [facility] Recent Vitals: Last Vital Signs Temp 97.6 F 02/17/17 08:50 Pulse 68 02/17/17 08:50 Resp 16 02/17/17 08:50 BP 157/70 02/17/17 08:50 Pulse Ox 98 02/17/17 08:50 H&P (including ROS) documented in medical record: Yes Previous reaction to sedatives/anesthetics: No Dietary Status: NPO after Midnight Airway Assessment: Patient can open mouth completely, TMJ function normal, Micrognathia (under-bite, receding chin) absent, Neck with adequate range of motion Dentition: No loose teeth or bridges Possible difficult airway: No ASA Classification *see protocol: CLASS II-Mild systemic disease Plan of Care: Pt appropriate candidate for procedure/moderate/conscious sedation , Risks/benefits of procedure/sedation discussed w/ patient/family
[2017-02-17] MEDS ORDERED: Nitroglycerin 1,000 MCG/10 ML VIAL IV ONE (11:27)
[2017-02-17] MEDS ORDERED: *HR* Bivalirudin 250 MG VIAL IVC ONE (11:52)
--- NOTE | 2017-02-17 13:34 | Invasive Diagnostic Lab ---
Name: Killian Baker Date of Study: 02/17/2017 Date: 1935 Ht: 167.6 cm /66.0 in Medical Record#: [id number] Age: 81 Wt: 95. kg / 209.44 lb Account/Order#: [id number] Gender: Male BSA: 2.04 Order #: [id number] Fluoro Dose: 732 mGy BMI: 33.82 Procedure Physician: Michelle Corrales MD, [facility] Referring MD: Referring MD: Procedures Performed: LEFT HEART CATH Stent w/ PTCA Single Major Vessel Indications: Non-Stemi Impressions: There is severe one vessel coronary artery disease. The left ventricle is normal and has normal contractility EF 60% Patient had successful PTCA/Drug-Eluting Stent placement in the mid LAD. Recommendations: Plavix (Clopidogrel) 75 mg PO Daily. Optimal medical therapy of patient's disease. Patient being referred for cardiac rehab. History/Risk Factors: CVA NSTEMI Diabetes Hypertension Dyslipidemia Procedure Access obtained in the right Femoral artery by percutaneous puncture Patient had successful PTCA/Drug-Eluting Stent placement in the mid LAD. Complications: None Contrast: Isovue 211ml Closure Device: Manual Compression Hemodynamics: Pressures Site Systolic/ A Wave Diastolic/ V Wave End Diastolic/ Mean HR AO 145 85 115 66 LV 158 4 6 66 LV 161 5 7 65 AO 165 53 107 63 AO 138 77 107 67 LV Ventriculography Ejection Method: LV Gram Ejection Fraction: 60% Wall Motion: WILLIS Anterobasal Normal Anterolateral Normal Apical: Normal Inferoapical Normal Inferobasal Normal Coronary Dominance: right Lesion Findings/Interventions * Left Main Coronary Artery The LMCA is angiographically free of disease. * Left Anterior Descending There is a 30% stenosis in the Proximal LAD. There is a 16 mm long, 99% stenosis in the Mid LAD. The lesion has a ASHLEY flow of 3 and has thrombus present. An intervention was performed on the Mid LAD with a final stenosis of 0%. There were no lesion complications. The final ASHLEY flow was 3. * Circumflex There is a 30% stenosis in the Proximal Circumflex. There is a 40% stenosis in the Mid Circumflex. * Right Coronary Artery There is a 30% stenosis in the Proximal RCA. There is a 25% stenosis in the Mid RCA. Interventional Device(s) Vessel Segment Type Name Diameter (mm) Length (mm) Mid LAD Balloon Emerge Monorail 2 8 Mid LAD Drug Eluting Stent Synergy 2.5 16 Updated by Emeli Almendarez, RT (R) on 02/17/2017 12:18:28 PM Michelle Corrales MD, FACC electronically signed on 02/17/2017 1:29:21 PM with status of Final
--- NOTE | 2017-02-17 13:42 | Invasive Diagnostic Lab Proc ---
Name: Killian Baker Date of Study: 02/17/2017 Date: 1935 Ht: 66.0in Medical Record#: [id number] Age: 81 Wt: 209.44lb Gender: Male BSA: 2.04 Order #: [id number] BMI: 33.82 Physicians Procedure Physician: Michelle Corrales MD, [facility] Referring MD: Referring MD: Staff Name Position Time In Maggie Logan RN Monitor 11:22 AM Srinath Brand RN Animated Cartoons Painter 11:22 AM Marlin Grant RT (R) Scrub 11:22 AM Emeli Almendarez RT (R) Monitor 11:27 AM Indications Indication Non-Stemi Procedures Performed Procedure L HRT ARTERY/VENTRICLE ANGIO PRQ CARD NIKOLAS STENT W/ANGIO 1 VSL Pre-Procedure Checklist Informed consent is complete signed and on chart. H&P is on chart. ID band is on and ID verified with patient. Patient NPO for procedure The procedure was described for the patient and questions were answered. Blood Pressure: 163/99 ECG is on chart. Rhythm: NSR Plan of Care Patient will tolerate the procedure without complications. Adequate level of comfort will be maintained. Hemodynamics will remain stable Patient will recover from procedure without complications. Respiratory function will be maintained. Cardiac rhythm will remain stable. Patient temperature will be maintained. Patient and/or family have verbalized understanding of the procedure. Patient Education Chief Complaint/Reason for Test: Cardiac Cath Developmental Category: Geriatric (65+ years) Developmentally Appropriate for Age: Yes Learning Barriers: None Education Needs: Procedure Education Method: Verbal Information Taught: Cardiac Cath Educational Evaluation: Able to repeat information Intravenous Access Time IV Size Location DC'd Fluid/Drip Rate Units RN 18g 1 /" Patent On Arrival Lt Wrist 0.9NaCl 25 ml/hr Srinath Brand RN Allergies No Known Allergies Vital Signs Time BP (mmHg) HR (bpm) O2 Sat. RR (bpm) LOC 157 / 70 68 98 % 16 11:23 AM / % 5 = Fully awake and oriented or at pre-proc level 11:19 AM 178 / 102 67 97 % 7 11:23 AM 166 / 96 67 94 % 7 11:28 AM 163 / 99 67 96 % 11 11:33 AM 150 / 91 64 98 % 12 11:38 AM 152 / 83 66 97 % 11 11:43 AM 162 / 81 65 97 % 11 11:48 AM 162 / 76 74 97 % 11 11:53 AM 152 / 77 75 96 % 11 11:58 AM 166 / 95 81 98 % 26 12:03 PM 179 / 85 79 98 % 12 12:08 PM 151 / 94 80 96 % 14 12:28 PM 174 / 84 75 98 % 16 5 = Fully awake and oriented or at pre-proc level 01:05 PM 174 / 91 67 98 % 16 5 = Fully awake and oriented or at pre-proc level 01:20 PM 164 / 89 68 96 % 18 5 = Fully awake and oriented or at pre-proc level Procedural Medications Time Medication Dose Units Method Given By 11:23 AM Oxygen 2 L/min nasal cannula Srinath Brand RN 11:23 AM Versed 1 mg Intravenous Srinath Brand RN 11:23 AM Fentanyl 25 mcg Intravenous Srinath Brand RN 11:33 AM Lidocaine 2% 17 ml Subcutaneous Michelle Corarles MD, FACC 11:55 AM Angiomax 0.75mg/kg bolus: 14 ml Intravenous Srinath Brand RN 11:55 AM Angiomax 1.75mg/kg/hr: 33 ml Intravenous Srinath Brand RN 12:06 PM Nitroglycerin 200 mcg Intracoronary Michelle Corrales MD, FACC 12:07 PM Plavix 600 mg Orally Srinath Brand RN 12:30 PM Angiomax Dc'd ASA Classification: CLASS II- Mild systemic disease (i.e. well-controlled diabetes, hypertension, asthma, cigarette smoking) Kindra Score Preprocedure Postprocedure Activity 2- Moves 4 extremities sustained head lift Activity 2- Moves 4 extremities sustained head lift Circulation 2- SBP +/= 20 points of pre-anesthetic level Circulation 2- SBP +/= 20 points of pre-anesthetic level Consciousness 2- Awake and alert oriented x 3 Consciousness 2- Awake and alert oriented x 3 O2 Saturation 2- Able to maintain O2 satruation of 92% on room air O2 Saturation 2- Able to maintain O2 satruation of 92% on room air Respiratory 2- Able to deep breathe and cough well Respiratory 2- Able to deep breathe and cough well Total Score 10 Total Score 10 Contrast Agent: Isovue Diagnostic Contrast: 211 ml Total Contrast: 211 ml Fluoro Dose: 732 mGy Procedure Log Time Note Enter By 11:17 AM CathStat 11:17 AM Vitals capture started with the following parameters, Patient=Adult, Interval=5 min, Initial Xmrqatyn=459 mmHg, Deflation Rate=5 mmHg, Cuff placed on Left Arm 11:19 AM HR=67 bpm, MCCY=680/102 mmhg, SpO2=97 %, Resp=7 B/min 11:22 AM Pt arrived to labeling associate 2 at 11: [email or web address] 11:22 AM Maggie Logan RN Position: Monitor Time in: : [email or web address] 11: AM Srinath Brand RN Position: Animated Cartoons Painter Time in: : [email or web address] 11: AM Marlin Grant RT (R) Position: Scrub Time in: 11: [email or web address] 11:22 AM Patient charges- Angio tray pack, Navilyst 3mm J, Pulse Oximetry and ACIST tubing and transducer [email or web address] 11:22 AM Case Delayed No [email or web address] 11: AM Hair removed from procedure site in procedure lab using clippers. Bilateral groin prepped with Chloraprep by Maggie Logan RN, safety strap applied then patient was draped. Skin intact. [email or web address] 11: AM Physician arrived 11: [email or web address] 11: AM ASA Class CLASS II- Mild systemic disease (i.e. well-controlled diabetes, hypertension, asthma, cigarette smoking) [email or web address] 11: AM Meet and greet completed [email or web address] 11: AM Sign in performed according to hospital policy. [email or web address] 11:22 AM Procedure start : [email or web address] : AM Time: LOC: 5 = Fully awake and oriented or at pre-proc level [email or web address] : AM Time: Patient comfortable and pain free: Yes [email or web address] : AM Time: Oxygen on at 2 L/min per nasal cannula by Srinath Brand RN [email or web address] : AM Time: Versed 1 mg Intravenous Given by Srinath Brand RN [email or web address] : AM Time: : Fentanyl 25 mcg Intravenous Given by Srinath Brand RN [email or web address] 11: AM Clinical Presentation: Non-STEMI [email or web address] 11: AM HR=67 bpm, SLXP=982/96 mmhg, SpO2=94 %, Resp=7 B/min 11:25 AM Pressure channel 1 zeroed. 11:26 AM Pressure channel 1 zeroed. 11:27 AM Sites, Emeli RT (R) Position: Monitor Time in: 11:27 [email or web address] 11:28 AM HR=67 bpm, MOLS=000/99 mmhg, SpO2=96 %, Resp=11 B/min 11:33 AM Time out performed according to hospital policy tsites 11:33 AM Time: 11:33 17 ml Lidocaine 2% to right groin Subcutaneous Given by Michelle Corrales MD, [facility] tsites 11:33 AM HR=64 bpm, TCPM=476/91 mmhg, SpO2=98 %, Resp=12 B/min 11:34 AM Access obtained by percutaneous puncture. 5Fr 10cm Terumo [place] sheath placed in right Femoral artery. [id number] tsites 11:34 AM 5Fr FL 4 catheter inserted over the wire [facility] tsites 11:34 AM 0.035 145cm Navilyst 3mmJ wire [id number] tsites 11:37 AM wire reinserted catheter remmoved tsites 11:38 AM HR=66 bpm, GKQM=902/83 mmhg, SpO2=97.0 %, Resp=11 B/min, Kindra=0 11:39 AM Sheath exchanged for a [address] Ever Ultimum sheath [id number] tsites 11:39 AM 5Fr FL 4 catheter inserted over the wire [facility] tsites 11:40 AM RCA angiography performed in multiple views. tsites 11:40 AM Recorded Pressure: Ao, HR=66, Condition=Condition 1 (Aorta) Ao 145/85/115 11:41 AM wire reinserted catheter remmoved tsites 11:41 AM 5Fr FL3.5 catheter inserted over the wire [id number] tsites 11:43 AM Pressure channel 1 zeroed. 11:43 AM Recorded Pressure: LV, HR=66, Condition=Condition 1 (Left Ventricle) LV 158/4/6 11:43 AM HR=65 bpm, URSE=337/81 mmhg, SpO2=97.0 %, Resp=11 B/min 11:43 AM Recorded Pressure: LV, Ao, HR=63, Condition=Condition 1 (Left Ventricle) LV 161/5/7, (Aorta) Ao 165/53/107 11:44 AM wire reinserted catheter remmoved tsites 11:44 AM 5Fr FL5 catheter inserted over the wire [id number] tsites 11:47 AM LCA angiography performed in multiple views. tsites 11:47 AM Recorded Pressure: Ao, HR=67, Condition=Condition 1 (Aorta) Ao 138/77/107 11:48 AM HR=74 bpm, MYKZ=152/76 mmhg, SpO2=97 %, Resp=11 B/min 11:49 AM Coronary Dominance: right tsites 11:49 AM Lesion found in Mid LAD. Pre Stenosis: 99 Pre ASHLEY Flow: tsites 11:49 AM Mid/Distal Left Anterior Descending Coronary Artery and diagonal branches with 99% stenosis. If graft is supplying this area, 0 % stenosis tsites 11:50 AM wire reinserted catheter remmoved tsites 11:50 AM 5Fr Pigtail catheter inserted over the wire DNC tsites 11:50 AM Catheter selectively placed in left ventricle tsites 11:51 AM Bolus angiogram of left Ventricle complete: 8 ml/sec for a total of 24 mls tsites 11:51 AM wire reinserted catheter remmoved tsites 11:52 AM Sheath exchanged for a [address] Ever Ultimum sheath [id number] tsites 11:52 AM PCI Status Urgent tsites 11:52 AM PCI Indication: PCI for high risk Non-STEMI or unstable angina tsites 11:52 AM PCI lesion in Mid LAD. tsites 11:53 AM 6Fr CLS 3.5 Runway guide catheter was used to cannulate the PCI vessel successfully. reused? No tsites 11:53 AM .014 Prowater 180cm guide wire across target lesion- successful. reused? No tsites 11:53 AM HR=75 bpm, CRSP=810/77 mmhg, SpO2=96.0 %, Resp=11 B/min 11:55 AM Time: 11:55 Angiomax 0.75mg/kg bolus: 14 ml Intravenous Given by Srinath Brand RN Mehta pump tsites 11:55 AM Time: 11:55 Angiomax 1.75mg/kg/hr: 33 ml Intravenous Given by Srinath Brand RN Mehta pump tsites 11:58 AM HR=81 bpm, WSTE=528/95 mmhg, SpO2=98 %, Resp=26 B/min 12:00 PM 2.0 mm x 8 mm Emerge Monorail balloon across target lesion- successful. reused? No tsites 12:01 PM Balloon inflated @ 10 audrey for 20 seconds tsites 12:01 PM Balloon catheter removed intact. tsites 12:03 PM HR=79 bpm, BKMF=841/85 mmhg, SpO2=98 %, Resp=12 B/min 12:03 PM 2.5mm x 16mm Synergy drug-eluting stent across target lesion- successful Lot #[id number] tsites 12:04 PM Stent deployed @ 12 audrey for 30 seconds tsites 12:04 PM Stent balloon reinflated @ 18 audrey for 10 seconds tsites 12:05 PM Stent delivery system removed intact. tsites 12:06 PM Time: 12:06 Nitroglycerin 200 mcg Intracoronary Given by Michelle Corrales MD, FACC tsites 12:07 PM Guide wire removed intact. tsites 12:07 PM Guide catheter removed intact. tsites 12:08 PM Time: 12:07 Plavix 600 mg Orally Given by Srinath Brand RN tsites 12:08 PM HR=80 bpm, WEDW=620/94 mmhg, SpO2=96 %, Resp=14 B/min 12:08 PM Sheath exchanged for a 6 Fr 11 cm Cordis Trisha sheath [id number] tsites 12:09 PM Bolus angiogram of right Femoral complete: 2 ml/sec for a total of 4 mls tsites 12:09 PM Procedure completed at 12:09 tsites 12:10 PM Sign out completed: Radiation Dose 732 mGy Fluoro Time: 12.4 Isovue 370 - 500ml contrast 211 ml given by Michelle Corrales MD, [facility]. Complications: NoneCardiac Rehab Consult needed: YesConfirmed administered medications: Yes tsites 12:10 PM Isovue 370 - 500ml,1 Bottle(s) used. tsites 12:10 PM Sheath left in place to be pulled on floor/holding areaV+Pad tsites 12:10 PM Post ECG NSR tsites 12:10 PM Post Blood Pressure 151/94 tsites 12:10 PM 12:10 Post Pulses Bilateral DP & PT 1+ tsites 12:10 PM Information taught Cardiac Cath and PCI tsites 12:10 PM Education needs Procedure, Plan of Care, and Responsibilities of Patient in Care tsites 12:10 PM Learning barriers :None tsites 12:10 PM Education Methods Verbal tsites 12:10 PM Education evaluation Able to repeat information tsites 12:10 PM Site status No bleeding/hematoma - Rt Groin as reported by Marlin Grant RT (R) at 12:10 tsites 12:11 PM Opsite applied tsites 12:11 PM Plavix, Effient or Brilinta given Yes tsites 12:13 PM Report given to geoffrey KHAN Pt taken to Holding room Room #4. 12:13 tsites 12:13 PM Delay to floor Bed availability tsites 12:13 PM Patient out of room: 12:13 tsites 12:15 PM Lesion found in Proximal RCA. Pre Stenosis: 30 Pre ASHLEY Flow: tsites 12:16 PM Lesion found in Mid RCA. Pre Stenosis: 25 Pre ASHLEY Flow: tsites 12:16 PM Lesion found in Proximal LAD. Pre Stenosis: 30 Pre ASHLEY Flow: tsites 12:16 PM Lesion found in Proximal Circumflex. Pre Stenosis: 30 Pre ASHLEY Flow: tsites 12:16 PM Lesion found in Mid Circumflex. Pre Stenosis: 40 Pre ASHLEY Flow: tsites 12:28 PM patient arrive to holding area rm 4 mprater 01:20 PM report called to Toma Salas [email or web address] 01:37 PM Delay to floor Bed availability kwitte 01:37 PM Complications: None kwitte 01:37 PM Family placed in holding area. kwitte 01:37 PM Patient out of room: 13:37 kwitte Complications Complication None None Hemodynamics Pressures Site Systolic/A Wave Diastolic/V Wave Mean AO 145 85 115 LV 158 4 6 LV 161 5 7 AO 165 53 107 AO 138 77 107 Post Procedure Information Blood Pressure: 151/94 mmHg Rhythm: NSR Post procedural instructions were given Closure Device Time Device Success/Fail 02/17/2017 12:14:00 PM Manual Compression Successful Site Checks Time Location Status Staff Sheath In? Note 12:10 PM Rt Groin No bleeding/hematoma Marlin Grant RT (R) 12:28 PM Rt Groin No bleeding/ No Hematoma Geoffrey Patel RT Yes 01:05 PM Rt Groin No bleeding/ No Hematoma Andre Nelson RN Yes 01:20 PM Rt Groin No bleeding/ No Hematoma Andre Nelson RN Yes Pulses Time Site Pre-Procedure Post-Procedure Note Bilateral DP & PT 1+ 12:10:00 PM Bilateral DP & PT 1+ 02/17/2017 12:28:00 PM Bilateral DP & PT 1+ 02/17/2017 1:05:00 PM Bilateral DP & PT 1+ 02/17/2017 1:20:00 PM Bilateral DP & PT 1+ Updated by Andre Nelson RN on 02/17/2017 1:37:32 PM Andre Nelson RN electronically signed on 02/17/2017 1:38:34 PM with status of Final
[2017-02-17] MEDS: Insulin LISPRO 300 UNITS/3 ML VIAL SQ SCH ×4 (13:50→23:18)
[2017-02-17] MEDS ORDERED: *HR* Atropine Sulfate 1 MG/10 ML SYRINGE ONE (14:34)
--- NOTE | 2017-02-17 14:39 | Electrocardiograph Report ---
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
[2017-02-17 16:38] LABS: Basophils # 0.1 K/mcL (0.0-0.2); Basophils % 0.9 %; Eosinophils % 9.3 %; Hematocrit 38.8 % (37.5-50.1); Hemoglobin 12.9 g/dL (12.9-16.9); Immature Granulocytes % 0.3 % (0-4); Lymphocytes # 2.6 K/mcL (0.6-4.6); Lymphocytes % 24.5 %; Mean Corpuscular HGB Conc 33.2 g/dL (31.6-35.5); Mean Corpuscular Hemoglobin 27.9 pg (28.0-33.3); Mean Corpuscular Volume 83.8 fL (83.0-100.0); Mean Platelet Volume 10.2 fL (9.4-12.4); Monocytes # 1.2 K/mcL (0.0-1.3); Monocytes % 11.6 %; Neutrophils # 5.6 K/mcL (1.6-8.9); Platelet Count 220 K/mcL (140-400); Red Blood Count 4.63 M/mcL (4.19-5.50); Red Cell Distribution Width 13.4 % (11.5-14.5); Segmented Neutrophils % 53.4 %
--- NOTE | 2017-02-17 16:43 | Event Note ---
Date of Encounter: 02/17/17 Time of Encounter: 16:38 - Cardiology Event Note Rapid response called on Mr. Baker. Apparently dropped HR (48 bpm) and BP (60/ 40 mmHg) and complained of chest pain. Patient appeared pale and diaphoretic upon entering the room. It should be noted that he received multiple medications that can affect heart rate and blood pressure at 14:10 (12.5mg metoprolol, 50mg losartan, 30mg Imdur, 10mg IV hydralazine). Suspect this was medication induced. Nonspecific ECG changes likely reflect transient ischemia from acute hypotension and bradycardia. Blood pressures have improved with IVFs and patient looks improved. He denies further chest pain. Labs including CBC, BMP and mag have been ordered. Advised the to communicate with the nursing staff if he has any further chest pain.
[2017-02-17 16:50] LABS: BUN/Creatinine Ratio 17 (6-26); Blood Urea Nitrogen 12 mg/dL (8-26); Calcium 8.2 mg/dL (8.6-10.8); Carbon Dioxide 23 mEq/L (19-29); Chloride 105 mEq/L (98-109); Glucose 127 mg/dL (70-99); Magnesium 1.8 mg/dL (1.6-2.6); Osmolality,Calculated 281 (280-300); Potassium 3.6 mEq/L (3.5-4.5); Sodium 135 mEq/L (136-145); eGFR For African Americans > 60 (> 60); eGFR For Non-African Americans > 60 (> 60)
[2017-02-17] MEDS: 0.9 % Sodium Chloride 1,000 ML IVC SCH (17:22)
[2017-02-18] MEDS: 0.9 % Sodium Chloride 1,000 ML IVC SCH (05:25)
[2017-02-18 06:01] LABS: Basophils # 0.1 K/mcL (0.0-0.2); Basophils % 0.5 %; Eosinophils # 0.8 K/mcL (0.0-0.6); Eosinophils % 8.5 %; Hemoglobin 12.8 g/dL (12.9-16.9); Immature Granulocytes % 0.2 % (0-4); Lymphocytes # 1.4 K/mcL (0.6-4.6); Lymphocytes % 14.6 %; Mean Corpuscular HGB Conc 32.8 g/dL (31.6-35.5); Mean Corpuscular Hemoglobin 28.3 pg (28.0-33.3); Mean Corpuscular Volume 86.1 fL (83.0-100.0); Mean Platelet Volume 10.7 fL (9.4-12.4); Monocytes # 0.9 K/mcL (0.0-1.3); Monocytes % 9.9 %; Neutrophils # 6.3 K/mcL (1.6-8.9); Platelet Count 183 K/mcL (140-400); Red Blood Count 4.53 M/mcL (4.19-5.50); Red Cell Distribution Width 13.6 % (11.5-14.5); Segmented Neutrophils % 66.3 %
[2017-02-18 06:19] LABS: BUN/Creatinine Ratio 15 (6-26); Blood Urea Nitrogen 12 mg/dL (8-26); Calcium 8.5 mg/dL (8.6-10.8); Carbon Dioxide 24 mEq/L (19-29); Chloride 107 mEq/L (98-109); Glucose 104 mg/dL (70-99); Osmolality,Calculated 286 (280-300); Potassium 4.1 mEq/L (3.5-4.5); Sodium 138 mEq/L (136-145); eGFR For African Americans > 60 (> 60); eGFR For Non-African Americans > 60 (> 60)
[2017-02-18 07:33] VITALS: BP 148/87
[2017-02-18] MEDS: Insulin LISPRO 300 UNITS/3 ML VIAL SQ SCH (08:29)
[2017-02-18] MEDS ORDERED: Aspirin 325 MG TABLET PO SCH (09:00)
[2017-02-18] MEDS ORDERED: Aspirin 81 MG TAB.CHEW PO SCH (09:00)
--- NOTE | 2017-02-18 09:51 | Cardiology Progress Note ---
Date of Encounter: 02/18/17 Time of Encounter: 09:30 Assessment and Plan (1) NSTEMI (non-ST elevated myocardial infarction) Current Visit: Yes Status: Acute Presented with NSTEMI. Cardiac rehab consulted. [facility] 02/17/17:There is severe one vessel coronary artery disease.The left ventricle is normal and has normal contractility EF 60%. Patient had successful PTCA/Drug-Eluting Stent placement in the mid LAD; otherwise mild, non- obstructive CAD. RR called yesterday, patient was bradycardiac/hypotensive; likely secondary to medications given & sheath pull. Was given ARB, BB, IV hydralazine, and long- acting nitrate. Patient responded quickly with IVF bolus. Medications were adjusted. No further events noted overnight, patient has been up and ambulating in room without symptoms this AM. Kidney function/blood counts are stable. Post PCI discharge instructions including care of right groin cath site/ limitations discussed. Emphasized the importance of uninterrupted DAPT (asa + plavix) for at least 1 year--pt. verbalized understanding. Continue DAPT, statin, and betablocker. Recommend prn SL NTG upon discharge. Cardiology will sign-off, will coordinate appt in the outpatient setting. Can consider resuming ARB in the outpatient setting if needed. Discussion w patient/family: The assessment and plan as outlined above was discussed with the patient and/or family members who expressed understanding and agreement. All questions were answered. Thank you for involving us in the care of your patient. Please call with any questions. The patient was discussed and reviewed with Dr. Jain; Cardiology will sign-off , will coordinate appt. in the outpatient setting. Subjective Principal diagnosis: NSTEMI Interval history: Seen and examined. Denies chest pain or any other event overnight. Rapid response (bradycardia/hypotensive episode) likely secondary to antihypertensive medications. Patient has been up and ambulating in room without symptoms. Objective Vital Signs, Last 4 Hours Temp Pulse Resp BP Pulse Ox 02/18/17 08:35 98.6 F 83 16 148/87 95 02/18/17 07:25 98.6 F 83 16 148/87 95 General: Conversant, No Apparent Distress HEENT: Atraumatic, Normocephaly, Mucus Membranes Moist Cardiac: Reg Rate and Rhythm, Normal S1 and S2 Lungs: Normal Breath Sounds Neuro: Alert and responsive Abdomen: Soft Skin: No rashes noted on visualized skin Musculoskeletal: No Chest Wall Tenderness Extremities: No Edema, Normal Pulses Other: right groin cath site: soft, no hematoma, ecchymosis, or oozing noted at site. Results 02/18/17 05:21 02/18/17 05:21 Lab Results 02/17/17 02/17/17 02/17/17 13:56 16:28 16:28 WBC 10.5 Hgb 12.9 Hct 38.8 Plt Count 220 Sodium Potassium Chloride Carbon Dioxide BUN Creatinine Glucose Calcium Magnesium Troponin I 0.10 H* 0.11 H* 02/17/17 02/18/17 02/18/17 16:28 05:21 05:21 WBC 9.4 Hgb 12.8 L Hct 39.0 Plt Count 183 Sodium 135 L 138 Potassium 3.6 4.1 Chloride 105 107 Carbon Dioxide 23 24 BUN 12 12 Creatinine 0.72 0.82 Glucose 127 H 104 H Calcium 8.2 L 8.5 L Magnesium 1.8 Troponin I Active Medications Aspirin (Aspirin) 81 mg PO DAILY [facility] Stop: 08/20/17 09:01 Last Admin: 02/18/17 08:31 Dose: 81 mg Atorvastatin Calcium (Lipitor) 40 mg PO HS [facility] Stop: 08/19/17 21:01 Last Admin: 02/17/17 20:04 Dose: 40 mg Clopidogrel Bisulfate (Plavix) 75 mg PO DAILY [facility] Stop: 08/19/17 09:01 Last Admin: 02/18/17 08:31 Dose: 75 mg Dextrose (Dextrose 5%) 1,000 mls @ 100 mls/hr IVC .Q10H PRN PRN Reason: HYPOGLYCEMIA Stop: 08/19/17 09:05 Sodium Chloride (0.9 % Sodium Chloride) 1,000 mls @ 80 mls/hr IVC .[id number] [facility] Stop: 08/19/17 17:09 Last Admin: 02/18/17 05:25 Dose: 80 mls/hr Insulin Human Lispro (Humalog) 0 units SQ TIDAC [facility] PRN Reason: Protocol Stop: 08/19/17 11:31 Last Admin: 02/18/17 08:29 Dose: Not Given Insulin Human Lispro (Humalog) 0 units SQ HS [facility] PRN Reason: Protocol Stop: 08/19/17 21:01 Last Admin: 02/17/17 23:18 Dose: 4 units Metoprolol Tartrate (Lopressor) 12.5 mg PO BID [facility] Stop: 08/19/17 09:16 Last Admin: 02/18/17 08:30 Dose: 12.5 mg Morphine Sulfate (Morphine Sulfate) 2 mg IVP Q4HR PRN PRN Reason: Severe Pain (7-10) Stop: 08/19/17 09:00 Naloxone HCl (Narcan) 0.4 mg IVP Q2MIN PRN PRN Reason: Opioid Reversal Stop: 08/19/17 06:35 Naloxone HCl (Narcan) 0.4 mg IVP Q2MIN PRN PRN Reason: Opioid Reversal Stop: 08/19/17 09:00 Nitroglycerin (Nitroglycerin) 0.4 mg SL Q5M PRN PRN Reason: Chest Pain Stop: 08/19/17 09:01 Omeprazole (Prilosec) 20 mg PO DAILY [facility] PRN Reason: Protocol Stop: 08/19/17 09:01 Last Admin: 02/18/17 08:30 Dose: 20 mg - Imaging and Cardiology Echo: report reviewed Cardiac cath: report reviewed Other Results: 12 hour tele: avg HR=74 SR. No significant event noted. - EKG Interpretation EKG results cardiology: personally reviewed Consult Discharge Plan - Plan Referrals: Leonard Villarreal MD [Primary Care Provider] - 02/24/17 9:45 am Michelle Corrales MD [Partnered Physician] - (CARDIOLOGY WILL CALL PATIENT AT HOME WITH HIS FOLLOW UP APPOINTMENT)
--- NOTE | 2017-02-18 10:50 | Discharge Summary ---
Date of Encounter: 02/18/17 Time of Encounter: 10:45 - Discharge Diagnosis (1) Chest pain Priority: Primary Status: Acute Qualifiers: Chest pain type: unspecified Qualified Code(s): R07.9 - Chest pain, unspecified (2) NSTEMI (non-ST elevated myocardial infarction) Priority: Primary Status: Acute (3) CAD (coronary artery disease) Priority: Secondary Status: Acute Qualifiers: Coronary Disease-Associated Artery/Lesion type: [place] artery [place] vs. transplanted heart: [place] heart Associated angina: without angina Qualified Code(s): I25.10 - Atherosclerotic heart disease of [place] coronary artery without angina pectoris (4) Diabetes Priority: Secondary Status: Acute Qualifiers: Diabetes mellitus type: type 2 Diabetes mellitus complication status: without complication Diabetes mellitus half-way insulin use: without half-way use Qualified Code(s): E11.9 - Type 2 diabetes mellitus without complications (5) Hypertension Priority: Secondary Status: Chronic Qualifiers: Hypertension type: essential hypertension Qualified Code(s): I10 - Essential (primary) hypertension - Discharge Medications Prescriptions: Aspirin 81 mg PO DAILY #30 Metoprolol [Lopressor] 12.5 mg PO BID 30 Days Home Medications: Atorvastatin [Lipitor] 40 mg PO HS 07/10/16 [History] Cholecalciferol (Vitamin D3) [Vitamin D3] 1,000 unit PO DAILY 07/10/16 [History] Clopidogrel [Plavix] 75 mg PO DAILY 07/10/16 [History] Diclofenac Sodium [Voltaren] 1 appl TP QID PRN 07/10/16 [History] Famotidine 40 mg PO DAILY 07/10/16 [History] Finasteride [Proscar] 5 mg PO DAILY 07/10/16 [History] Isosorbide MONOnitrate (24 HR) [Imdur] 30 mg PO DAILY 07/10/16 [History] Lansoprazole [Prevacid] 15 - 30 mg PO DAILY 07/10/16 [History] Losartan Potassium [Cozaar] 50 mg PO DAILY 07/10/16 [History] Multivitamin [Multi-Day Vitamins] 1 each PO DAILY 07/10/16 [History] Nitroglycerin [Nitrostat] 0.4 mg SL Q5M PRN 07/10/16 [History] metFORMIN [Glucophage] 500 mg PO BIDWM 07/10/16 [History] Docusate [Colace] 100 mg PO BID PRN #30 capsule 07/13/16 [Rx] Aspirin 81 mg PO DAILY #30 02/18/17 [Rx] Meloxicam [Mobic] 7.5 mg PO BID PRN #0 02/18/17 [Rx] Metoprolol [Lopressor] 12.5 mg PO BID 30 Days 02/18/17 [Rx] Allergies/Adverse Reactions: Allergies No Known Allergies Allergy (Verified 07/10/16 06:17) Procedures/tests Complete & Pending: Procedures Performed prior 72 hours Category Date Time Status CL Cardiac Catheterization [CL] Routine Claims Customer Service Representative 02/17/17 10:59 Completed EKG [ECG 12 lead ECG] [ECG] Stat Y 02/17/17 16:23 Ordered Date of admission: 02/17/17 06:42 Primary care physician: Leonard Villarreal MD Consults: 02/17/17 11:32 Consult to Cardiac Rehabilitation-Phase1 [CONS] Routine Comment: Reason for Consult: NSTEMI Call Completed: No - Patient Status Disposition: Home, Self-Care Condition: Good Overall status at discharge: patient is back to baseline - Discharge Instructions Follow Up With: Leonard Villarreal MD [Primary Care Provider] - 02/24/17 9:45 am Michelle Corrales MD [Partnered Physician] - (CARDIOLOGY WILL CALL PATIENT AT HOME WITH HIS FOLLOW UP APPOINTMENT) Forms: ED Satisfaction Letter - Diet and Activity Activity: increase activity as tolerated Hospital course: Mr. Baker is a 81 year old male with a PMH of CAD, DM, and carotid artery disease s/p R CEA (12/12/13) that presented to the ER this morning for chest pain. Patient says that around 0100 in the morning, he started to experience chest tightness and pressure along with minor shortness of breath which awoke him from sleep. The pain was a 2/10 in pain scale and lasted for an hour until he decided to take 2 nitroglycerin tabs which relieved the pain shortly. He admits the pain radiated to his left arm. He denies any syncope, light- headedness, or vision changes. A few hours later, the patient decided to drive to the ER to be assessed and started experiencing the same type of chest pain along the way. He claims the pain subsided shortly after arrival to the ER. His troponins on arrival were elevated at 0.14 (currently 0.16). EKG on arrival showed a sinus rhythm with no ST-elevations. Pt was admitted here and went for cardiac cath right away. LHC showed severe one vessel coronary artery disease.The left ventricle is normal and has normal contractility EF 60%. Patient had successful PTCA/Drug-Eluting Stent placement in the mid LAD; otherwise mild, non-obstructive CAD. Post cath pt was transferred to PCU for further observation. Apparently he received all his BP meds, IV hydralazine, Metoprolol at once and suddenly his BP dropped down to 60' s and HR in 40's. So NOTE SPECIALIST called, pt was started on IV hydration his symptoms resolved. Pt remained CP free. His vitals are stable now. He would like to go home today. Cardiology cleared to him to go home and recommend to continue low dose Metoprolol at 12.5 BID - Time Spent with Patient Total time spent providing and/or coordinating discharge services: - Constitutional Vitals: Temp Pulse Resp BP Pulse Ox 98.6 F 83 16 148/87 95 02/18/17 08:35 02/18/17 08:35 02/18/17 08:35 02/18/17 08:35 02/18/17 08:35 General appearance: Present: A&O X 3, no acute distress - Head Head exam: Present: atraumatic, normal inspection - Respiratory Respiratory exam: Present: decreased breath sounds. Absent: accessory muscle use, rales, respiratory distress, rhonchi, wheezes - Cardiovascular Cardiovascular exam: Present: RRR, +S1, +S2. Absent: diastolic murmur, gallop, rubs, systolic murmur - Extremities Exam Extremities exam: Absent: calf tenderness, pedal edema, tenderness - Neurological Exam Neurological exam: Present: alert, oriented X3 - Psychiatric Psychiatric exam: Present: normal affect, normal mood
--- NOTE | 2017-02-19 12:30 | Electrocardiograph Report ---
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
--- NOTE | 2017-02-19 12:30 | Electrocardiograph Report ---
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
--- NOTE | 2017-02-19 12:31 | Electrocardiograph Report ---
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
== END 2017-02-18 11:41 | disposition home or self-care (01) ==
LOC: EMEROO 04:51 → 3BNU 04:51 → 2NNU 12:18
PROVIDERS: ADMIT Nurse Practitioner Family; ATTEND Nurse Practitioner Family

== ENCOUNTER 2017-04-19 09:57 | Observation (INO) ==
--- NOTE | 2017-04-19 10:31 | Emergency Department Note ---
Disposition Clinical Impression: ACS (acute coronary syndrome), Tachyarrhythmia, Diaphoresis, Hx of coronary artery disease Leukocytosis, unspecified Qualifiers: Leukocytosis type: unspecified Qualified Code(s): D72.829 - Elevated white blood cell count, unspecified Disposition: Admitted As Inpatient Condition: Fair Time of Disposition: 19:00 Arrhythmia/Palpitations HPI - General Chief Complaint: ED General Medical Stated Complaint: High Heart Rate Time Seen by Provider: 04/19/17 10:07 Source: patient Limitations: no limitations Nursing Notes Reviewed: Yes Vital Signs Reviewed: Yes - History of Present Illness HPI Narrative: Patient is an 81-year-old male complains of tachycardia and diaphoresis times this morning after waking from sleep. Patient states that he woke up he was sweating and through the pulse ox on and he was tachycardic at 116 beats per minute. Patient denied any chest pain shortness of breath, fever, chills, abdominal pain or chest pressure. Patient states he has a history of stent placement 2 months ago for severe blockage mid LAD requiring one stent. He is currently on plavix. Patient reports no recent injury or dyspnea on exertion - Related Data Home Medications Medication Instructions Recorded Confirmed Atorvastatin [Lipitor] 40 mg PO HS 07/10/16 04/19/17 Cholecalciferol (Vitamin D3) 1,000 unit PO DAILY 07/10/16 04/19/17 [Vitamin D3] Clopidogrel [Plavix] 75 mg PO DAILY 07/10/16 04/19/17 Famotidine 40 mg PO DAILY 07/10/16 04/19/17 Finasteride [Proscar] 5 mg PO DAILY 07/10/16 04/19/17 Isosorbide MONOnitrate (24 HR) 30 mg PO DAILY 07/10/16 04/19/17 [Imdur] Losartan Potassium [Cozaar] 50 mg PO DAILY 07/10/16 04/19/17 Multivitamin [Multi-Day Vitamins] 1 each PO DAILY 07/10/16 04/19/17 Nitroglycerin [Nitrostat] 0.4 mg SL Q5M PRN 07/10/16 04/19/17 metFORMIN [Glucophage] 500 mg PO BIDWM 07/10/16 04/19/17 Metoprolol Succinate 25 mg PO DAILY 04/19/17 04/19/17 Previous Rx's Medication Instructions Recorded Docusate [Colace] 100 mg PO BID PRN #30 capsule 07/13/16 Aspirin 81 mg PO DAILY #30 02/18/17 Meloxicam [Mobic] 7.5 mg PO BID PRN #0 02/18/17 Allergies Allergy/AdvReac Type Severity Reaction Status Date / Time No Known Allergies Allergy Verified 04/19/17 10:05 All systems ED: reviewed and negative except as stated. Review of Systems: As Per HPI Constitutional: Denies: fever ENT ED: Denies: congestion Cardiovascular: Denies: chest pain, palpitations Respiratory: Denies: cough, dyspnea, wheezes Gastrointestinal: Denies: abdominal pain, nausea, vomiting Genitourinary: Denies: urgency, dysuria, frequency Musculoskeletal: Denies: back pain Integumentary: Denies: rash Neurological: Denies: headache Psychiatric: Denies: anxiety Past Medical History - Past Medical History Attestation: Yes The following information was validated with the patient. Source: patient Medical history: Reports: arthritis, cancer, CVA, diabetes, GERD, hyperlipidemia , hypertension Surgical history: Reports: carotid endarterectomy, orthopedic, other Psychiatric history: Reports: no psych history - Social History Smoking Status: Former smoker Smokeless Tobacco Status: No Alcohol use: Reports: none Drug use: Reports: none Physical Exam Vital Signs Temperature 97.7 F 04/19/17 10:01 Pulse Rate 84 04/19/17 10:01 Respiratory Rate 18 04/19/17 10:01 Blood Pressure 144/67 04/19/17 10:01 O2 Sat by Pulse Oximetry 94 04/19/17 10:01 Temperature 97.7 F 04/19/17 10:01 Pulse Rate 83 04/19/17 10:25 Respiratory Rate 14 04/19/17 10:25 Blood Pressure 111/76 04/19/17 10:25 O2 Sat by Pulse Oximetry 95 04/19/17 10:25 Oxygen Delivery Oxygen Delivery Room Air Patient's an 81-year-old male who is alert and oriented 3 and in no acute distress. Patient currently nondiaphoretic and nontoxic appearing. Patient's currently not tachycardic. Patient has a regularly irregular heart rhythm on auscultation with EKG showing sinus rhythm with sinus arrhythmia at a rate of 76 bpm - General Limitations: no limitations General appearance: alert, in no apparent distress - Head Head exam: atraumatic, normocephalic, normal inspection - Eye Eye exam: Present: normal appearance, PERRL, EOMI - ENT ENT exam: normal exam, normal oropharynx, mucous membranes moist - Neck Neck exam: Present: normal inspection, full ROM, trachea midline - Chest Chest inspection: Present: normal inspection, symmetric chest wall rise - Respiratory Respiratory exam: Present: normal lung sounds bilaterally. Absent: respiratory distress, wheezes - Cardiovascular Cardiovascular exam: Present: regular rate - Abdominal Exam Abdominal exam: Present: soft, Non-Tender. Absent: tenderness, distention, guarding, rebound, rigidity - Extremities Exam Extremities exam: Present: normal capillary refill, other (Patient has knee). Absent: tenderness, pedal edema, calf tenderness Course Vital Signs Temperature 97.7 F 04/19/17 10:01 Pulse Rate 84 04/19/17 10:01 Respiratory Rate 18 04/19/17 10:01 Blood Pressure 144/67 04/19/17 10:01 O2 Sat by Pulse Oximetry 94 04/19/17 10:01 Temperature 97.6 F 04/19/17 19:30 Pulse Rate 68 04/19/17 19:30 Respiratory Rate 16 04/19/17 19:30 Blood Pressure 149/70 04/19/17 19:30 O2 Sat by Pulse Oximetry 96 04/19/17 19:30 Oxygen Delivery Oxygen Delivery Room Air Arrhythmia/Palpitations - [facility] Narrative Medical decision making narrative: Patient is an onset of diaphoresis upon awakening early this morning concerning for ACS/CA. Patient had similar symptoms during past CA with the exception of chest pain. Patient has no chest pain today. Patient complained of tachycardia as well. 116 beats minute. Patient has resolution of symptoms at the time of exam. Differential diagnosis: ACS/CA, PE, aortic dissection, pneumonia. Patient did say that he was eating over your eye symptoms history for over week ago. Patient's WBC came back elevated at 25.8. Patient currently has no source of infection. Patient's right knee which had recent steroid injection times one day ago looks well no increased erythema or swelling, tenderness or purulence. Patient's labs were unremarkable. Patient has no UTI but it of blood in his urine. Patient has no back or abdominal pain or complaints of dysuria. Chest x-ray showed no cardiopulmonary abnormalities. Current plan is to admit patient for observation given his past medical history and high WBC with tachycardia for concerns of possible early infection. Patient understands and agrees to decision for admission. Patient was accepted for admission by Dr Mcbride. - Lab Data Lab results reviewed: Yes I reviewed the patient's lab results. Lab results narrative: Short CBC 04/19/17 Range/Units 10:35 WBC 25.8 H (4.3-11.1) K/mcL Hgb 13.7 (12.9-16.9) g/dL Hct 40.5 (37.5-50.1) % Plt Count 201 (140-400) K/mcL Neutrophils # 23.2 H (1.6-8.9) K/mcL BMP 04/19/17 Range/Units 10:35 Sodium 136 (136-145) mEq/L Potassium 4.5 (3.5-4.5) mEq/L Chloride 105 (98-109) mEq/L Carbon Dioxide 26 (19-29) mEq/L BUN 16 (8-26) mg/dL Creatinine 0.94 (0.72-1.25) mg/dL Glucose 255 H (70-99) mg/dL Calcium 9.3 (8.6-10.8) mg/dL Cardiac Enzymes 04/19/17 04/19/17 Range/Units 14:57 10:35 Troponin I 0.00 0.01 (0-0.03) ng/mL Urine 04/19/17 Range/Units 10:45 Urine Color Yellow (Yellow) Urine Clarity Clear (Clear) Urine pH 5.5 (5.0-8.0) pH Units Ur Specific [place] > 1.030 H (1.010-1.025) Urine Protein Negative (Neg-Trace) mg/dL Urine Glucose (UA) >=1000 H (Normal) mg/dL Result diagrams: 04/19/17 10:35 04/19/17 10:35 Lab Results 04/19/17 04/19/17 04/19/17 Range/Units 10:35 10:35 10:35 WBC 25.8 H (4.3-11.1) K/mcL RBC 4.82 (4.19-5.50) M/mcL Hgb 13.7 (12.9-16.9) g/dL Hct 40.5 (37.5-50.1) % MCV 84.0 (83.0-100.0) fL MCH 28.4 (28.0-33.3) pg MCHC 33.8 (31.6-35.5) g/dL RDW 13.0 (11.5-14.5) % Plt Count 201 (140-400) K/mcL MPV 10.5 (9.4-12.4) fL Seg Neutrophils % 88.0 % Band Neutrophils % 2.0 (0-4) % Lymphocytes % 8.0 % Monocytes % 2.0 % Neutrophils # 23.2 H (1.6-8.9) K/mcL Lymphocytes # 2.1 (0.6-4.6) K/mcL Monocytes # 0.5 (0.0-1.3) K/mcL Platelet Estimate Normal (Normal) PT 11.6 (9.4-12.1) Seconds INR 1.1 APTT 28.0 (26.0-36.0) Seconds Sodium 136 (136-145) mEq/L Potassium 4.5 (3.5-4.5) mEq/L Chloride 105 (98-109) mEq/L Carbon Dioxide 26 (19-29) mEq/L BUN 16 (8-26) mg/dL Creatinine 0.94 (0.72-1.25) mg/dL Est GFR ( Amer) > 60 (> 60) Est GFR (Non-Af Amer) > 60 (> 60) BUN/Creatinine Ratio 17 (6-26) Glucose 255 H (70-99) mg/dL Calculated Osmolality 292 (280-300) Calcium 9.3 (8.6-10.8) mg/dL Troponin I (0-0.03) ng/mL TSH 0.635 (0.350-4.840) mcIU/mL Urine Color (Yellow) Urine Clarity (Clear) Urine pH (5.0-8.0) pH Units Ur Specific [place] (1.010-1.025) Urine Protein (Neg-Trace) mg/dL Urine Glucose (UA) (Normal) mg/dL Urine Ketones (Negative) mg/dL Urine Blood (Negative) Urine Nitrite (Negative) Urine Bilirubin (Negative) Urine Urobilinogen (Normal) mg/dL Ur Leukocyte Esterase (Negative) Urine Microscopic RBC (0-3) per hpf Urine Microscopic WBC (0-3) per hpf Ur Squamous Epith Cells (None-Few) per lpf Urine Bacteria (None-Few) per hpf Hyaline Casts (None-Few) per lpf Ur Culture Indicated? (NO) 04/19/17 04/19/17 Range/Units 10:35 10:45 WBC (4.3-11.1) K/mcL RBC (4.19-5.50) M/mcL Hgb (12.9-16.9) g/dL Hct (37.5-50.1) % MCV (83.0-100.0) fL MCH (28.0-33.3) pg MCHC (31.6-35.5) g/dL RDW (11.5-14.5) % Plt Count (140-400) K/mcL MPV (9.4-12.4) fL Seg Neutrophils % % Band Neutrophils % (0-4) % Lymphocytes % % Monocytes % % Neutrophils # (1.6-8.9) K/mcL Lymphocytes # (0.6-4.6) K/mcL Monocytes # (0.0-1.3) K/mcL Platelet Estimate (Normal) PT (9.4-12.1) Seconds INR APTT (26.0-36.0) Seconds Sodium (136-145) mEq/L Potassium (3.5-4.5) mEq/L Chloride (98-109) mEq/L Carbon Dioxide (19-29) mEq/L BUN (8-26) mg/dL Creatinine (0.72-1.25) mg/dL Est GFR ( Amer) (> 60) Est GFR (Non-Af Amer) (> 60) BUN/Creatinine Ratio (6-26) Glucose (70-99) mg/dL Calculated Osmolality (280-300) Calcium (8.6-10.8) mg/dL Troponin I 0.01 (0-0.03) ng/mL TSH (0.350-4.840) mcIU/mL Urine Color Yellow (Yellow) Urine Clarity Clear (Clear) Urine pH 5.5 (5.0-8.0) pH Units Ur Specific [place] > 1.030 H (1.010-1.025) Urine Protein Negative (Neg-Trace) mg/dL Urine Glucose (UA) >=1000 H (Normal) mg/dL Urine Ketones Trace H (Negative) mg/dL Urine Blood Small H (Negative) Urine Nitrite Negative (Negative) Urine Bilirubin Negative (Negative) Urine Urobilinogen Normal (Normal) mg/dL Ur Leukocyte Esterase Negative (Negative) Urine Microscopic RBC 3-5 H (0-3) per hpf Urine Microscopic WBC 3-5 H (0-3) per hpf Ur Squamous Epith Cells Many H (None-Few) per lpf Urine Bacteria None Seen (None-Few) per hpf Hyaline Casts None Seen (None-Few) per lpf Ur Culture Indicated? NO (NO) - Radiology Data Radiology results reviewed: Yes I reviewed the patient's radiology results. Chest X-Ray 04/19/17 10:11 IMPRESSION: No acute process. D/ / Glenn Casper MD / Glenn Casper MD Interpreting Provider: Glenn Casper MD - EKG Data EKG attestation: Yes I reviewed and interpreted this EKG. EKG results narrative: EKG taken 04/19/2017 at 1015 hrs. shows sinus rhythm with sinus arrhythmia at a rate of 76 bpm with no acute ST elevations or depressions. No QRS widening or QT prolongation. When compared to previous EKG there are: no significant changes Interpretation: no acute changes
--- NOTE | 2017-04-19 10:40 | Emergency Department Note ---
START Narrative - START START: I examined this patient and my medical decision-making was reviewed with the Resident Physician. I agree with the documented findings, disposition and treatment plan as described except to the extent set forth below. 81 yo M woke up in middle of night with diaphoresis and elevated heart rate. had similar situation with previous MN in february. never had chest pain. no other assoc sx. had stent to LAD in february. will check labs, cxr, ekg consult with cards.
[2017-04-19 10:43] LABS: Hematocrit 40.5 % (37.5-50.1); Hemoglobin 13.7 g/dL (12.9-16.9); Mean Corpuscular HGB Conc 33.8 g/dL (31.6-35.5); Mean Corpuscular Hemoglobin 28.4 pg (28.0-33.3); Mean Platelet Volume 10.5 fL (9.4-12.4); Platelet Count 201 K/mcL (140-400); Red Blood Count 4.82 M/mcL (4.19-5.50)
[2017-04-19 10:53] LABS: INR 1.1; Prothrombin Time 11.6 Seconds (9.4-12.1)
[2017-04-19 10:54] LABS: Bilirubin,Urine Negative (Negative); Blood,Urine Small (Negative); Clarity,Urine Clear (Clear); Color,Urine Yellow (Yellow); Glucose,Urine (UA) >=1000 mg/dL (Normal); Ketones,Urine Trace mg/dL (Negative); Leukocyte Esterase,Urine Negative (Negative); Nitrite,Urine Negative (Negative); PH,Urine 5.5 pH Units (5.0-8.0); Protein,Urine Negative (Neg-Trace); Specific Gravity,Urine > 1.030 (1.010-1.025); Urobilinogen,Urine Normal (Normal)
[2017-04-19 10:56] LABS: Bacteria,Urine None Seen per hpf (None-Few); Hyaline Casts,Urine None Seen per lpf (None-Few); Squamous Epithelial Cell,Urine Many per lpf (None-Few)
[2017-04-19 10:56] LABS: BUN/Creatinine Ratio 17 (6-26); Blood Urea Nitrogen 16 mg/dL (8-26); Calcium 9.3 mg/dL (8.6-10.8); Carbon Dioxide 26 mEq/L (19-29); Chloride 105 mEq/L (98-109); Glucose 255 mg/dL (70-99); Osmolality,Calculated 292 (280-300); Potassium 4.5 mEq/L (3.5-4.5); Sodium 136 mEq/L (136-145); eGFR For African Americans > 60 (> 60); eGFR For Non-African Americans > 60 (> 60)
[2017-04-19 11:02] LABS: Lymphocytes # 2.1 K/mcL (0.6-4.6); Monocytes # 0.5 K/mcL (0.0-1.3); Neutrophils # 23.2 K/mcL (1.6-8.9); Platelet Estimate Normal (Normal)
[2017-04-19 11:18] LABS: Thyroid Stimulating Hormone 0.635 mcIU/mL (0.350-4.840)
[2017-04-19] MEDS ORDERED: 0.9 % Sodium Chloride 1,000 ML IVC ONE (11:43)
[2017-04-19] MEDS ORDERED: *HR* HYDROcodone/Acet 5/325 mg TABLET PO PRN (12:35)
[2017-04-19] MEDS ORDERED: Ondansetron 4 MG/2 ML VIAL IVP PRN (12:35)
[2017-04-19] MEDS ORDERED: Acetaminophen 325 MG TABLET PO PRN (12:35)
[2017-04-19] MEDS ORDERED: Naloxone 0.4 MG/ML INJ IVP PRN (12:35)
[2017-04-19] MEDS ORDERED: *HR* Morphine 2 MG/ML SYRINGE IVP PRN (12:35)
[2017-04-19] MEDS ORDERED: Nitroglycerin 0.4 MG TAB.SUBL SL PRN (13:04)
[2017-04-19] MEDS ORDERED: Dextrose Gel 15 GM PO PRN ×2 (13:07)
[2017-04-19] MEDS ORDERED: *HR* Dextrose 50 % in Water (Syg) 50 ML SYRINGE IVP PRN (13:07)
[2017-04-19] MEDS ORDERED: D5% in Water 1,000 ML IVC PRN (13:07)
--- NOTE | 2017-04-19 14:13 | Internal Med History&Physical ---
<RobblessingkurtisPop thacker - Last Filed: 04/19/17 19:06> Date of Encounter: 04/19/17 Time of Encounter: 11:30 Assessment and Plan (1) Tachycardia Current visit: Yes Status: Acute Patient presents with report of acute tachycardia this morning with diaphoresis. States same symptoms as when he had his previous ID but no chest pain or SOB. HR on admission 84 bpm. Initial troponin 0.01. Will trend x2. Echocardiogram ordered. Patient placed on continuous cardiac telemetry. Patient is at high risk for cardiac event based on current symptoms, history, and risk factors and will be placed as observation status. (2) Leukocytosis Current visit: Yes Status: Acute Patient presents with WBC of 25.8 on admission most likely reactive due to recent steroid use. Previously treated for URI last week with PO levaquin and steroid taper. Patient is currently asymptomatic with exception of cough. CXR today clear. Sputum culture and blood cultures x2 ordered. Will administer IV abx if warranted. Monitor f/u labs. Qualifiers: Leukocytosis type: unspecified Qualified Code(s): D72.829 - Elevated white blood cell count, unspecified (3) Arthritis Current visit: Yes Status: Chronic Hx of chronic arthritis. Will continue patient's meloxicam and Voltaren. Stair- step pain medication for pain management and breakthrough pain. (4) GERD (gastroesophageal reflux disease) Current visit: Yes Status: Chronic Hx of chronic GERD. IVP Protonix 40 mg BID. IVP Zofran Q6 PRN for nausea. Qualifiers: Esophagitis presence: with esophagitis Qualified Code(s): K21.0 - Gastro- esophageal reflux disease with esophagitis (5) HLD (hyperlipidemia) Current visit: Yes Status: Chronic Hx of chronic HLD. Continue patient's Lipitor. Lipid panel ordered in a.m. labs. Qualifiers: Hyperlipidemia type: pure hypercholesterolemia Qualified Code(s): E78.00 - Pure hypercholesterolemia, unspecified; E78.0 - Pure hypercholesterolemia (6) HTN (hypertension) Current visit: Yes Status: Chronic Hx of chronic HTN. Monitor patient and VS. Continue Cozaar, metoprolol, and Imdur. Qualifiers: Hypertension type: essential hypertension Qualified Code(s): I10 - Essential (primary) hypertension (7) CAD (coronary artery disease) Current visit: Yes Status: Chronic Hx of chronic CAD and previous CVA in 2012 and ID in February 2017 with stent placement x1. Risk factors include DM, HTN, HLD. Will continue patient's aspirin therapy, Plavix, Cozaar, metoprolol, and Imdur. Qualifiers: Coronary Disease-Associated Artery/Lesion type: [place] artery [place] vs. transplanted heart: [place] heart Associated angina: without angina Qualified Code(s): I25.10 - Atherosclerotic heart disease of [place] coronary artery without angina pectoris (8) Diabetes Current visit: Yes Status: Chronic Hx of chronic diabetes controlled with oral antihyperglycemic medications. Will hold patient's metformin and administer low-dose correction insulin sliding scale with hypoglycemic protocol. BG checks before meals at bedtime. A1c ordered in a.m. labs. 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 Internal Medicine - H&P: HPI Chief complaint: Tachycardia with Diaphoresis Admitted From: Emergency Dept Plans for Post Hospital Care: Home History of present illness: Mr. 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 Patient denies chest pain, SOB, fever, chills, abdominal pain, chest pressure, unusual bleeding, changes in vision, nausea, vomiting, presyncope or syncope. Patient states symptoms are similar to when he had his ID in February without the chest pain or SOB. HR on admission 84 BPM. 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), CVA (2012), diabetes, GERD, hyperlipidemia, hypertension Psychiatric history: no psych history - Past Surgical History Surgical History: carotid endarterectomy (Right), orthopedic, other (Neck for ruptured disc, right shoulder replacement, right hip) - Social History Smoking Status: Former smoker Packs per day: Pipe for 45 years - quit 10 years ago Smokeless Tobacco Status: No Alcohol use: none Drug use: none Occupational status: employed Current living situation: Home, With Family Activity Level: Independent ambulation Recent Out of Country Travel Within the Last 8 Weeks: No Exposure or Possible Exposure to Illness During Travel: No - Family History Father Family Member Ethnicity: Non- Living Status: Age at : 88 Cause of : ID Hx Family Cardiac Disorders: Yes (ID) Hx Family Cancer: Yes (Breast) Mother Race: Family Member Ethnicity: Non- Living Status: Age at : 96 Cause of : Old age Hx Family Medical Disorders: No Brother History Unknown: Yes Race: Family Member Ethnicity: Non- Living Status: Still Living Sister Race: Family Member Ethnicity: Non- Living Status: Age at : 67 Cause of : Breast cancer Hx Family Cancer: Yes (Breast) Internal Medicine - H&P: Meds Atorvastatin [Lipitor] 40 mg PO HS 07/10/16 [History] Cholecalciferol (Vitamin D3) [Vitamin D3] 1,000 unit PO DAILY 07/10/16 [History] Clopidogrel [Plavix] 75 mg PO DAILY 07/10/16 [History] Famotidine 40 mg PO DAILY 07/10/16 [History] Finasteride [Proscar] 5 mg PO DAILY 07/10/16 [History] Isosorbide MONOnitrate (24 HR) [Imdur] 30 mg PO DAILY 07/10/16 [History] Losartan Potassium [Cozaar] 50 mg PO DAILY 07/10/16 [History] Multivitamin [Multi-Day Vitamins] 1 each PO DAILY 07/10/16 [History] Nitroglycerin [Nitrostat] 0.4 mg SL Q5M PRN 07/10/16 [History] metFORMIN [Glucophage] 500 mg PO BIDWM 07/10/16 [History] Docusate [Colace] 100 mg PO BID PRN #30 capsule 07/13/16 [Rx] Aspirin 81 mg PO DAILY #30 02/18/17 [Rx] Meloxicam [Mobic] 7.5 mg PO BID PRN #0 02/18/17 [Rx] Metoprolol Succinate 25 mg PO DAILY 04/19/17 [History] 3 Allergy/AdvReac Type Severity Reaction Status Date / Time No Known Allergies Allergy Verified 04/19/17 10:05 All Systems PM: A 10-system review of systems was performed and is negative for pertinent findings except as documented above in the HPI. - Constitutional Constitutional: as per HPI, excessive sweating - EENT Eyes: no change in vision, no discharge, no pain, no photophobia Ears: no ear discharge, no ear pain, no tinnitus Nose, mouth and throat: no dysphagia, no nasal discharge, no neck pain, no sore throat - Breasts Breasts: as per HPI - Cardiovascular Cardiovascular ROS IM: as per HPI, diaphoresis, irregular heart rhythm ( Tachycardia with occasional skipped beat) - Respiratory Respiratory: as per HPI, cough, no dyspnea, no wheezing, no excessive phlegm production - Gastrointestinal Gastrointestinal: no abdominal pain, no diarrhea, no hematemesis, no hematochezia, no melena, no nausea, no vomiting - Genitourinary Genitourinary ROS male: as per HPI - Musculoskeletal Musculoskeletal ROS IM: arthralgias, no numbness, no tingling - Integumentary Integumentary IM: no rash, no unusual bruising - Neurological Neurological ROS: no confusion, no convulsions, no focal weakness, no numbness, no tingling, no tremor(s) - Psychiatric Psychiatric: as per HPI - Endocrine Endocrine IM: as per HPI - Hematologic/Lymphatic Hematologic/Lymphatic: no easy bruising - Allergic/Immunologic Allergic/Immunologic: as per HPI - Constitutional Vitals: Temp Pulse Resp BP Pulse Ox 97.8 F 81 16 149/77 95 04/19/17 12:45 04/19/17 12:45 04/19/17 12:45 04/19/17 12:45 04/19/17 12:45 General appearance: Present: cooperative, A&O X 3, pleasant, no acute distress, obese, answers questions appropriately - Head Head exam: Present: atraumatic, normocephalic - Eye Eye exam: Present: PERRL, conjuntiva pink, sclera anicteric Pupils: Present: PERRL - ENT ENT exam: Present: normal exam, normal external ear exam - Neck Neck exam general surgery: Present: normal inspection, supple, trachea midline. Absent: lymphadenopathy - Respiratory Respiratory exam: Present: CTAB. Absent: accessory muscle use, rales, rhonchi, wheezes - Cardiovascular Cardiovascular exam: Present: irregular rhythm (Skipped beat every 15-20 beats ) , RRR, +S1, +S2. Absent: diastolic murmur, gallop, rubs, systolic murmur - GI/Abdominal GI/Abdominal exam: Present: normal bowel sounds, soft, no peritoneal signs. Absent: distended, tenderness - Rectal Rectal exam: Present: deferred - Additional comments: exam deferred. - Extremities Exam Extremities exam: Present: warm, radial pulses palpable and symmetrical. Absent : calf tenderness, cyanotic, pedal edema - Back Exam Back exam: Present: normal inspection - Neurological Exam Neurological exam: Present: CN II-XII intact, oriented X3, no focal deficits. Absent: pronater drift, facial droop, speech deficit - Psychiatric Psychiatric exam: Present: normal affect, normal mood - Skin Skin exam: Present: dry, intact Internal Med - H&P Results - Labs CBC & Chem 7: 04/19/17 10:35 04/19/17 10:35 Labs: Pertinent abnormal labs include WBC of 25.8 and glucose of 255. - EKG Data EKG shows normal: sinus rhythm - EKG Data Prior EKG available for review: no EKG comments: 04/19/17 14:22 EKG dated 04/19/17 shows sinus rhythm with sinus arrhythmia. Normal ECG. - Diagnostic Studies Chest x-ray Additional comments: Impressions Chest X-Ray 04/19/17 10:11 IMPRESSION: No acute process. D/ / Glenn Casper MD / Glenn Casper MD Interpreting Provider: Glenn Casper MD <Jonathan Birch - Last Filed: 04/19/17 20:23> Date of Encounter: 04/19/17 Internal Medicine - H&P: HPI History of present illness: Mr. Baker is a 81 year old male All Systems PM: A 10-system review of systems was performed and is negative for pertinent findings except as documented above in the HPI. - Constitutional Vitals: Temp Pulse Resp BP Pulse Ox 97.6 F 68 16 149/70 96 04/19/17 19:30 04/19/17 19:30 04/19/17 19:30 04/19/17 19:30 04/19/17 19:30 Internal Med - H&P Results - Labs CBC & Chem 7: 04/19/17 10:35 04/19/17 10:35 Labs: Cardiac Enzymes 04/19/17 Range/Units 14:57 Troponin I 0.00 (0-0.03) ng/mL - Attending Attestation I independently obtained history and examined this patient and my medical decision-making was reviewed with the nurse practitioner. I agree with the documented findings, disposition and treatment plan as described. My findings are summarized below: Patient is in no acute distress. Heart is regular S1-S2. Plan: Monitor on telemetry. Trend troponin. Obtain echocardiogram. Consult cardiology. Jonathan Birch MD
[2017-04-19] MEDS: *HR* Heparin 5,000 UNIT/ML VIAL SQ SCH ×2 (16:10→20:43)
[2017-04-19] MEDS: Insulin LISPRO 300 UNITS/3 ML VIAL SQ SCH (16:48)
[2017-04-19] MEDS: Pantoprazole 40 MG VIAL IVP SCH (20:43)
[2017-04-19] MEDS ORDERED: Insulin LISPRO 300 UNITS/3 ML VIAL SQ SCH (21:00)
[2017-04-20 03:54] LABS: Basophils # 0.1 K/mcL (0.0-0.2); Basophils % 0.3 %; Eosinophils # 0.4 K/mcL (0.0-0.6); Eosinophils % 2.2 %; Hematocrit 34.5 % (37.5-50.1); Immature Granulocytes % 0.5 % (0-4); Lymphocytes # 1.3 K/mcL (0.6-4.6); Lymphocytes % 7.9 %; Mean Corpuscular HGB Conc 34.5 g/dL (31.6-35.5); Mean Corpuscular Hemoglobin 28.6 pg (28.0-33.3); Mean Corpuscular Volume 82.9 fL (83.0-100.0); Mean Platelet Volume 10.9 fL (9.4-12.4); Monocytes # 1.2 K/mcL (0.0-1.3); Monocytes % 6.9 %; Platelet Count 155 K/mcL (140-400); Red Blood Count 4.16 M/mcL (4.19-5.50); Red Cell Distribution Width 13.2 % (11.5-14.5); Segmented Neutrophils % 82.2 %
[2017-04-20 03:58] LABS: INR 1.1; Prothrombin Time 11.7 Seconds (9.4-12.1)
[2017-04-20 04:01] LABS: Activated Partial Thrombo Time 28.1 Seconds (26.0-36.0)
[2017-04-20 04:04] LABS: Hemoglobin 11.9 g/dL (12.9-16.9)
[2017-04-20 04:16] LABS: Alanine Aminotransferase 15 Units/L (0-55); Albumin 3.2 g/dL (3.5-5.0); Albumin/Globulin Ratio 1.1 (1.1-2.2); Alkaline Phosphatase 88 Units/L (38-126); Aspartate Amino Transferase 19 Units/L (5-34); BUN/Creatinine Ratio 19 (6-26); Bilirubin,Total 0.6 mg/dL (0.2-1.2); Blood Urea Nitrogen 16 mg/dL (8-26); Calcium 8.8 mg/dL (8.6-10.8); Carbon Dioxide 24 mEq/L (19-29); Chloride 105 mEq/L (98-109); Chol/HDL Ratio 3.7 (0-4.9); Cholesterol 110 mg/dL (< 200); Globulin 2.8 g/dL (2.4-3.5); Glucose 149 mg/dL (70-99); HDL Cholesterol 30 mg/dL (40-59); LDL Cholesterol,Calculated 62 mg/dL (0-99); Magnesium 1.9 mg/dL (1.6-2.6); Osmolality,Calculated 286 (280-300); Potassium 4.1 mEq/L (3.5-4.5); Sodium 136 mEq/L (136-145); Triglycerides 92 mg/dL (< 150); eGFR For African Americans > 60 (> 60); eGFR For Non-African Americans > 60 (> 60)
[2017-04-20] MEDS: *HR* Heparin 5,000 UNIT/ML VIAL SQ SCH ×2 (05:58→12:32)
[2017-04-20] MEDS: Pantoprazole 40 MG VIAL IVP SCH (08:32)
[2017-04-20] MEDS: Insulin LISPRO 300 UNITS/3 ML VIAL SQ SCH ×2 (08:35→12:33)
[2017-04-20] MEDS ORDERED: Finasteride 5 MG TABLET PO SCH (09:00)
[2017-04-20] MEDS ORDERED: Aspirin 81 MG TAB.CHEW PO SCH (09:00)
[2017-04-20] MEDS ORDERED: Metoprolol XL (24 HR) Succ 25 MG TAB.ER.24H PO SCH (09:00)
[2017-04-20] MEDS ORDERED: Isosorbide MONOnitrate (24 HR) 30 MG TAB.ER.24H PO SCH (09:00)
[2017-04-20] MEDS ORDERED: Cholecalciferol (D-3) 1,000 UNIT TABLET PO SCH (09:00)
[2017-04-20] MEDS ORDERED: Multivit/Ca/Min/Fe/FA 1 TAB TABLET PO SCH (09:00)
[2017-04-20 10:11] VITALS: BP 145/69
--- NOTE | 2017-04-20 14:12 | Discharge Summary ---
Date of Encounter: 04/20/17 Time of Encounter: 14:02 - Discharge Diagnosis (1) CAD (coronary artery disease) Priority: Primary Status: Chronic Comments: Killian Quiles is a 81 y/o male with PMH CAD, BPH, diabetes and hypertension who presented to [facility] on 04/19/2017 complaints of tachycardia and diaphoresis. He was placed in observation status for further workup and treatment. ACS was ruled out with negative serial troponin and EKG without acute ST changes. There was no documented tachycardia while he was in the hospital and his WBC trended down. He had no symptom recurrence and was discharged home in stable condition with outpatient follow-up 1. CAD: hx [place] 02/2017 with stent placement. Presented with reported diaphoresis and tachycardia that resolved prior to arrival. Denied chest pain, no shortness of breath. ACS ruled out with negative serial troponin and EKG without acute ST changes. Continue home ASA, Plavix, BB, titrate. Recommend follow-up with outpatient associate program manager. 2. Leukocytosis: WBC 25K on arrival. Recently on steroids for URI. Suspect leukocytosis secondary to steroids, no obvious infectious etiology. Hemodynamically stable, no tachycardia, no hypotension, afebrile. CXR without infiltrates. UA not indicative of UTI. Blood cultures ordered but not obtained. WBC 17 K at discharge. Recommend repeat CBC in 3-5 days with PCP. 3. Tachycardia: Reported heart rate elevated at home, resolved prior to arrival. No tachycardia documented while inpatient. 04/20/2017 echo with EF 60 %, no significant valvular dysfunction, no wall motion abnormalities. Etiology of tachycardia unknown, patient thinks possibly secondary to anxiety. Hemodynamically stable, no tachycardia, no hypotension, no chest pain, no back pain, no shortness of breath to suggest pulmonary embolism or dissection. Can follow up outpatient with PCP 4. Hypertension: per hx. repeat controlled. Continue home BP medications 5. Diabetes: per hx. Cont home diabetes medication regimen. Qualifiers: Coronary Disease-Associated Artery/Lesion type: [place] artery [place] vs. 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 insulin use: without exterminator helper termite use Qualified Code(s): E11.9 - Type 2 diabetes mellitus without complications (3) Leukocytosis Priority: Primary Status: Acute Qualifiers: Leukocytosis type: unspecified Qualified Code(s): D72.829 - Elevated white blood cell count, unspecified (4) Tachycardia Priority: Primary Status: Acute - Discharge Medications Home Medications: Atorvastatin [Lipitor] 40 mg PO HS 07/10/16 [History] Cholecalciferol (Vitamin D3) [Vitamin D3] 1,000 unit PO DAILY 07/10/16 [History] Clopidogrel [Plavix] 75 mg PO DAILY 07/10/16 [History] Famotidine 40 mg PO DAILY 07/10/16 [History] Finasteride [Proscar] 5 mg PO DAILY 07/10/16 [History] Isosorbide MONOnitrate (24 HR) [Imdur] 30 mg PO DAILY 07/10/16 [History] Losartan Potassium [Cozaar] 50 mg PO DAILY 07/10/16 [History] Multivitamin [Multi-Day Vitamins] 1 each PO DAILY 07/10/16 [History] Nitroglycerin [Nitrostat] 0.4 mg SL Q5M PRN 07/10/16 [History] metFORMIN [Glucophage] 500 mg PO BIDWM 07/10/16 [History] Docusate [Colace] 100 mg PO BID PRN #30 capsule 07/13/16 [Rx] Aspirin 81 mg PO DAILY #30 02/18/17 [Rx] Meloxicam [Mobic] 7.5 mg PO BID PRN #0 02/18/17 [Rx] Metoprolol Succinate 25 mg PO DAILY 04/19/17 [History] Allergies/Adverse Reactions: 3 Allergy/AdvReac Type Severity Reaction Status Date / Time No Known Allergies Allergy Verified 04/19/17 10:05 Procedures/tests Complete & Pending: Procedures Performed prior 72 hours Category Date Time Status EV echocardiogram Stat Y 04/19/17 13:09 Completed Date of admission: 04/19/17 11:51 Primary care physician: Leonard Villarreal MD Consults: 04/19/17 13:02 Consult to Turbo Operator [CONS] Routine Reason for SW Consult: Patient and his would like information/education regarding becoming each other's POA, advanced directives, etc. Discharging clinician: Felisha Braden Anticipated date of discharge: 04/20/17 - Patient Status Disposition: Home, Self-Care Condition: Good Functional capacity at discharge: independent ambulation Overall status at discharge: patient is back to baseline - Discharge Instructions Instructions: Coronary Artery Disease (GEN) Follow Up With: Leonard Villarreal MD [Primary Care Provider] - Mady Jain DO [Partnered Physician] - - Diet and Activity Activity: resume usual activities as tolerated Diet: diabetic diet, low fat, low cholesterol Interval History: Seen examined at bedside. Patient is new to me, information obtained from chart review and patient report. Patient says he feels much better and would like to go home today. He reports an episode of diaphoresis with tachycardia which pounded him to come to the hospital. He has had no symptom recurrence. Denies chest pain, no shortness of breath. Says he was recently on steroids and thinks this steroids for making him anxious. Hospital course: See assessment and plan for hospital course - Time Spent with Patient Total time spent providing and/or coordinating discharge services: - Constitutional Vitals: Temp Pulse Resp BP Pulse Ox 97.6 F 60 18 145/69 97 04/20/17 10:07 04/20/17 10:07 04/20/17 10:07 04/20/17 10:07 04/20/17 10:07 General appearance: Present: cooperative, A&O X 3, pleasant, no acute distress, obese, answers questions appropriately - Head Head exam: Present: atraumatic, normocephalic - Eye Eye exam: Present: PERRL, conjuntiva pink, sclera anicteric Pupils: Present: PERRL - Neck Neck exam general surgery: Present: supple, trachea midline. Absent: lymphadenopathy - Respiratory Respiratory exam: Present: CTAB. Absent: accessory muscle use, rales, rhonchi, wheezes - Cardiovascular Cardiovascular exam: Present: RRR, +S1, +S2. Absent: diastolic murmur, gallop, rubs, systolic murmur - GI/Abdominal GI/Abdominal exam: Present: normal bowel sounds, soft, no peritoneal signs. Absent: distended, tenderness - Extremities Exam Extremities exam: Present: warm, radial pulses palpable and symmetrical. Absent : calf tenderness, cyanotic, pedal edema - Neurological Exam Neurological exam: Present: CN II-XII intact, oriented X3, no focal deficits. Absent: pronater drift, facial droop, speech deficit - Skin Skin exam: Present: dry, intact
--- NOTE | 2017-04-20 19:53 | Electrocardiograph Report ---
[place] [id number] Test Date: 2017-04-19 Pat Name: Killian Baker Department: 102 Room: 3A25 Gender: M Manager Quality Improvement: Nico : 1935 Requested By: John Ortiz Order Number: [id number] Reading MD: Rico Hernandez MD Measurements Intervals [place] Rate: 76 P: 35 RI: 154 QRS: 26 QRSD: 91 T: 65 QT: 356 QTc: 387 Interpretive Statements SINUS RHYTHM WITH FREQUENT PVC Electronically Signed On 04-20-2017 19:51:36 EDT by Rico Hernandez MD
== END 2017-04-20 15:52 | disposition home or self-care (01) ==
LOC: EMEROO 09:57 → 3ANU 09:57
PROVIDERS: ADMIT Internal Medicine; ATTEND Internal Medicine

== ENCOUNTER 2020-04-27 12:21 | Observation (INO) ==
[~2020-04-27 12:21] MED LIST: Povidone-Iodine 45 ML, Sodium Chloride IRRigation 1,000 ML IR ONE
[2020-04-27] MEDS ORDERED: CeFAZolin Syr 3,000MG/30 ML 3,000 MG/30 ML SYRINGE IVPB ONE (12:34)
[2020-04-27] MEDS ORDERED: CeFAZolin Syr 2,000MG/20 ML 2,000 MG/20 ML SYRINGE IVPB ONE (12:39)
[2020-04-27] MEDS ORDERED: Ringers Solution, Lactated 1,000 ML IVC SCH (12:45)
[2020-04-27] MEDS ORDERED: *HR* Propofol 200 MG/20 ML VIAL IVP ONE (12:52)
[2020-04-27] MEDS ORDERED: *HR* FentaNYL (PF) 100 MCG/2 ML VIAL ONE ×2 (12:52→14:42)
[2020-04-27] MEDS ORDERED: *HR* Midazolam HCl 2 MG/2 ML VIAL ONE ×2 (12:52→14:43)
[2020-04-27] MEDS ORDERED: *HR* Succinylcholine 200 MG/10 ML VIAL IVP ONE (12:53)
[2020-04-27] MEDS ORDERED: Lidocaine -MPF 2% 2 ML VIAL ONE (12:53)
[2020-04-27] MEDS ORDERED: Lidocaine HCL 4 ML Topical Solution (Laryng-O-Jet Kit Sterile Pak) TP ONE (12:53)
[2020-04-27] MEDS ORDERED: Ethanol\\Acetic Acid\\Na Ace\\Ben 1,000 ML IRRIG.SOLN IR ONE (12:53)
[2020-04-27] MEDS ORDERED: Ropivacaine/PF 0.5% 30 ML VIAL ONE (13:01)
[2020-04-27] MEDS ORDERED: Ondansetron 4 MG/2 ML VIAL IVP PRN ×2 (13:03→16:41)
[2020-04-27] MEDS ORDERED: *HR* HYDROmorphone PF 0.5 MG/0.5 ML SYRINGE IVP PRN (13:03)
[2020-04-27] MEDS ORDERED: *HR* OxyCODONE Immed Rel 5 MG TABLET PO PRN (13:03)
[2020-04-27] MEDS ORDERED: Vancomycin 1,000 MG VIAL ONE (13:05)
[2020-04-27] MEDS ORDERED: *HR* Rocuronium Bromide 50 MG/5 ML VIAL ONE (13:08)
[2020-04-27] MEDS ORDERED: Sennosides 8.6 MG TABLET PO PRN (16:41)
[2020-04-27] MEDS ORDERED: MOM Conc 10 ML UD.LIQ PO PRN (16:41)
[2020-04-27] MEDS ORDERED: Fluticasone Propionate Nasal 50 MCG/SPRAY BOTTLE NS PRN (16:41)
[2020-04-27 17:13] LABS: Hematocrit 41.4 % (37.5-50.1); Hemoglobin 13.4 g/dL (12.9-16.9)
[2020-04-27] MEDS ORDERED: *HR* Enoxaparin 30 MG/0.3 ML SYRINGE SQ SCH (18:00)
[2020-04-27] MEDS: Metoprolol XL (24 HR) Succ 25 MG TAB.ER.24H PO SCH (20:58)
[2020-04-27] MEDS: CeFAZolin 2 GM/120 ML BAG IVPB SCH (21:02)
[2020-04-28] MEDS ORDERED: Naloxone 0.4 MG/ML INJ IVP PRN (00:57)
[2020-04-28] MEDS: *HR* OxyCODONE Immed Rel 5 MG TABLET PO PRN ×3 (01:03→10:25)
[2020-04-28] MEDS: HYDROcodone BIT/Homatropine 5 MG TABLET PO PRN ×3 (03:18→12:53)
[2020-04-28 04:44] LABS: Hematocrit 38.6 % (37.5-50.1); Hemoglobin 12.4 g/dL (12.9-16.9)
[2020-04-28 05:03] LABS: BUN/Creatinine Ratio 15 (6-26); Blood Urea Nitrogen 12 mg/dL (8-23); Calcium 8.3 mg/dL (8.6-10.3); Carbon Dioxide 24 mEq/L (23-29); Chloride 102 mEq/L (98-107); Glucose 196 mg/dL (70-105); Osmolality,Calculated 281 (280-300); Potassium 4.1 mEq/L (3.5-5.1); Sodium 133 mEq/L (136-145); eGFR For African Americans > 60 (> 60); eGFR For Non-African Americans > 60 (> 60)
[2020-04-28] MEDS: CeFAZolin 2 GM/120 ML BAG IVPB SCH (05:11)
[2020-04-28] MEDS ORDERED: *HR* GlipiZIDE XL (24 HR) 2.5 MG TABLET PO SCH (08:00)
[2020-04-28] MEDS: Ringers Solution, Lactated 1,000 ML IVC SCH (08:27)
[2020-04-28] MEDS: Cholecalciferol (D-3) 1,000 UNIT (25MCG) TABLET PO SCH (08:29)
[2020-04-28] MEDS: Finasteride 5 MG TABLET PO SCH (08:29)
[2020-04-28] MEDS: Loratadine 10 MG TABLET PO SCH (08:30)
[2020-04-28] MEDS: Isosorbide MONOnitrate (24 HR) 30 MG TAB.ER.24H PO SCH (08:30)
[2020-04-28] MEDS: Aspirin Enteric Coated 81 MG Tablet PO SCH (08:30)
[2020-04-28] MEDS: Metoprolol XL (24 HR) Succ 25 MG TAB.ER.24H PO SCH ×2 (08:30→20:09)
[2020-04-28] MEDS ORDERED: D5% in Water 1,000 ML IVC PRN (12:05)
[2020-04-28] MEDS ORDERED: Dextrose Gel 15 GM/37.5 ML TUBE PO PRN ×2 (12:05)
[2020-04-28] MEDS ORDERED: *HR* Dextrose 50 % in Water (Vial) 50 ML VIAL IVP PRN (12:05)
[2020-04-28] MEDS: Insulin LISPRO 300 UNITS/3 ML VIAL SQ SCH ×2 (12:53→17:48)
[2020-04-28] MEDS ORDERED: Ketorolac 15 MG/ML VIAL IVP ONE (13:23)
[2020-04-28] MEDS: Insulin DETEMIR 100 UNIT/ML X5UNITS SQ SCH (20:09)
[2020-04-29 02:29] LABS: Hematocrit 33.2 % (37.5-50.1)
[2020-04-29 02:53] LABS: BUN/Creatinine Ratio 14 (6-26); Blood Urea Nitrogen 13 mg/dL (8-23); Calcium 8.4 mg/dL (8.6-10.3); Carbon Dioxide 26 mEq/L (23-29); Chloride 100 mEq/L (98-107); Glucose 169 mg/dL (70-105); Osmolality,Calculated 280 (280-300); Potassium 3.7 mEq/L (3.5-5.1); Sodium 133 mEq/L (136-145); eGFR For African Americans > 60 (> 60); eGFR For Non-African Americans > 60 (> 60)
[2020-04-29] MEDS: *HR* OxyCODONE Immed Rel 5 MG TABLET PO PRN (05:43)
[2020-04-29] MEDS: Finasteride 5 MG TABLET PO SCH (08:11)
[2020-04-29] MEDS: Loratadine 10 MG TABLET PO SCH (08:12)
[2020-04-29] MEDS: Cholecalciferol (D-3) 1,000 UNIT (25MCG) TABLET PO SCH (08:12)
[2020-04-29] MEDS: Aspirin Enteric Coated 81 MG Tablet PO SCH (08:12)
[2020-04-29] MEDS: Metoprolol XL (24 HR) Succ 25 MG TAB.ER.24H PO SCH (08:12)
[2020-04-29] MEDS: Isosorbide MONOnitrate (24 HR) 30 MG TAB.ER.24H PO SCH (08:13)
[2020-04-29] MEDS: Insulin DETEMIR 100 UNIT/ML X5UNITS SQ SCH (08:24)
[2020-04-29] MEDS: Insulin LISPRO 300 UNITS/3 ML VIAL SQ SCH ×2 (08:27→12:01)
[2020-04-29 10:41] VITALS: BP 111/67
== END 2020-04-29 12:50 | disposition home or self-care (01) ==
LOC: SAMDAY 12:21 → INTOOBSV 15:46 → 3NENU 15:46
PROVIDERS: ADMIT Orthopaedic Surgery; ATTEND Orthopaedic Surgery